=== PATIENT | male | born 1960 | race Caucasian/White ===

== ENCOUNTER → 2020-02-26 18:25 | Outpatient (CLI) | payer MEDICAID, SELFPAY ==
[2020-02-26 19:20] LABS: Basophils # 0.1 K/mm3 (0-0.2); Basophils % 0.7 % (0.1-2.0); Eosinophils # 0.2 K/mm3 (0.0-0.4); Eosinophils % 2.9 % (0.1-12.0); Hematocrit 42.3 % (42.0-52.0); Hemoglobin 13.7 g/dL (14.1-18.0); Lymphocytes # 1.3 K/mm3 (0.7-4.5); Lymphocytes % 17.8 % (10-50); Mean Corpuscular HGB Conc 32.5 g/dL (31.8-35.4); Mean Corpuscular Hemoglobin 30.4 pg (27.0-31.2); Mean Corpuscular Volume 93.7 fl (80-94); Mean Platelet Volume 9.9 fl (7.4-10.4); Monocytes # 0.5 K/mm3 (0.1-1.0); Monocytes % 6.7 % (1.7-9.3); Neutrophils # 5.2 K/mm3 (1.8-7.8); Platelet Count 236 K/mm3 (142-424); Red Blood Count 4.51 M/mm3 (4.60-6.20); Red Cell Distribution Width 13.8 % (11.5-17.5); White Blood Count 7.2 K/mm3 (4.8-10.8)
[2020-02-26 19:39] LABS: Alanine Aminotransferase 16 U/L (12-78); Albumin Level 4.3 g/dl (3.5-5.0); Albumin/Globulin Ratio 1.4 (1.1-1.8); Alkaline Phosphatase 66 U/L (38-126); Anion Gap 18.7 mEq/L (5-15); Aspartate Amino Transferase 22 U/L (17-59); Bilirubin,Total 0.5 mg/dl (0.2-1.3); Blood Urea Nitrogen 28 mg/dl (9-20); Carbon Dioxide 24 mmol/L (22.0-30.0); Chloride 99 mmol/L (98-107); Chol/HDL Ratio 5.3 (1-3.5); Cholesterol 164 mg/dl (140-200); Estimated Glomerular Filt Rate 48 ml/min (>60); GFR (African American) 58 ML/MIN (>60); Glucose 319 mg/dl (74-100); HDL Cholesterol 31 mg/dl (40-60); Potassium 5.7 mmoL/L (3.5-5.1); Sodium 136 mmol/L (136-145); Total Protein,Serum 7.3 g/dl (6.3-8.2); Triglycerides 182 mg/dl (30-150); VLDL Cholesterol 36 mg/dL (0-40)
[2020-02-26 19:50] LABS: Direct LDL Cholesterol 111.72 mg/dL (100-129)
[2020-02-26 19:56] LABS: T4 (Thyroxine) 7.1 ug/dl (5.53-11.0)
[2020-02-26 20:05] LABS: Creatinine,Urine Random 33 mg/dL (Not Estab.); Hemoglobin A1C 7.2 % (4.0-6.0); Microalbumin < 6.000 mg/L (0-16.7)
[2020-02-26 20:10] LABS: Prostate Specific Ag Screen 1.1 ng/ml (0.0-4.0); Thyroid Stimulating Hormone 1.83 uIU/mL (0.465-4.68)
[2020-03-01 18:55] LABS: Testosterone, Total, LC/MS 425.6 ng/dL (264.0-916.0); Testosterone,Free 6.1 pg/mL (6.6-18.1)
== END ==
PROVIDERS: Visit Provider Family Medicine
DX: E11.9 Type 2 diabetes mellitus without complications (principal); I10 Essential (primary) hypertension; E78.5 Hyperlipidemia, unspecified; Z79.84 Long term (current) use of oral hypoglycemic drugs; Z12.5 Encounter for screening for malignant neoplasm of prostate
CPT/HCPCS: 80053; 80061; 82043; 82570; 83036; 84402; 84403; 84436; 84443; 85025; G0103

== ENCOUNTER → 2020-11-01 14:12 | Outpatient (CLI) | payer MEDICAID, SELFPAY ==
[2020-11-01 14:24] LABS: Basophils # 0.1 K/mm3 (0-0.2); Basophils % 0.9 % (0.1-2.0); Eosinophils # 0.2 K/mm3 (0.0-0.4); Eosinophils % 2.3 % (0.1-12.0); Hematocrit 38.6 % (42.0-52.0); Hemoglobin 12.9 g/dL (14.1-18.0); Lymphocytes # 1.4 K/mm3 (0.7-4.5); Mean Corpuscular HGB Conc 33.3 g/dL (31.8-35.4); Mean Corpuscular Hemoglobin 29.5 pg (27.0-31.2); Mean Corpuscular Volume 88.5 fl (80-94); Mean Platelet Volume 9.5 fl (7.4-10.4); Monocytes # 0.5 K/mm3 (0.1-1.0); Monocytes % 4.9 % (1.7-9.3); Neutrophils # 7.1 K/mm3 (1.8-7.8); Neutrophils % 76.9 % (37.0-80.0); Platelet Count 225 K/mm3 (142-424); Red Blood Count 4.36 M/mm3 (4.60-6.20); Red Cell Distribution Width 13.7 % (11.5-17.5); White Blood Count 9.2 K/mm3 (4.8-10.8)
[2020-11-01 14:52] LABS: Chloride 104 mmol/L (98-107)
[2020-11-01 14:53] LABS: Potassium 5.2 mmoL/L (3.5-5.1); Sodium 138 mmol/L (136-145)
[2020-11-01 14:55] LABS: Alanine Aminotransferase 15 U/L (12-78); Albumin Level 4.7 g/dl (3.5-5.0); Albumin/Globulin Ratio 1.5 (1.1-1.8); Alkaline Phosphatase 69 U/L (38-126); Anion Gap 16.2 mEq/L (5-15); Aspartate Amino Transferase 22 U/L (17-59); Bilirubin,Total 0.5 mg/dl (0.2-1.3); Blood Urea Nitrogen 41 mg/dl (9-20); Carbon Dioxide 23 mmol/L (22.0-30.0); Estimated Glomerular Filt Rate 39 ml/min (>60); GFR (African American) 47 ML/MIN (>60); Globulin 3.1 g/dL (1.3-3.2); Total Protein,Serum 7.8 g/dl (6.3-8.2)
[2020-11-01 14:56] LABS: Calcium 9.9 mg/dl (8.4-10.2); Chol/HDL Ratio 4.1 (1-3.5); Cholesterol 174 mg/dl (140-200); Glucose 179 mg/dl (74-100); HDL Cholesterol 42 mg/dl (40-60); Triglycerides 174 mg/dl (30-150); VLDL Cholesterol 35 mg/dL (0-40)
[2020-11-01 15:07] LABS: Direct LDL Cholesterol 97.94 mg/dL (100-129)
[2020-11-01 15:10] LABS: Creatinine,Urine Random 91 mg/dL (Not Estab.)
[2020-11-01 15:14] LABS: Hemoglobin A1C 7.2 % (4.0-6.0); Microalbumin/Creatinine Ratio 15.4
[2020-11-01 15:27] LABS: Thyroid Stimulating Hormone 3.37 uIU/mL (0.465-4.68)
== END ==
PROVIDERS: Visit Provider Family Medicine
DX: E11.9 Type 2 diabetes mellitus without complications (principal); Z79.84 Long term (current) use of oral hypoglycemic drugs; Z79.899 Other long term (current) drug therapy
CPT/HCPCS: 80053; 80061; 82043; 82570; 83036; 84443; 85025

== ENCOUNTER → 2021-01-10 10:53 | Outpatient (CLI) | payer MEDICAID, SELFPAY | PROVIDERS: Visit Provider Internal Medicine Gastroenterology | DX: Z01.812 Encounter for preprocedural laboratory examination (principal); Z11.52 Encounter for screening for COVID-19; Z12.11 Encounter for screening for malignant neoplasm of colon | CPT/HCPCS: C9803; U0003; U0005 ==

== ENCOUNTER 2021-01-13 09:28 | Day surgery (SDC) | payer MEDICAID, SELFPAY ==
[2021-01-09 13:57] VITALS: BMI 28.6
[2021-01-13] VITALS (7 sets, daily range): BP systolic 111–125; BP diastolic 64–85; PULSE 56–75; RESP 16–18; TEMP 36.1–36.7; O2SAT 96–99
--- NOTE | 2021-01-13 10:24 | P.PCN_ITS ---
[facility] Procedure Note Procedure Note:: Colonoscopy Procedure Report: Colonoscopy with cold snare polypectomy Endoscopist: Sina Jackson II, MD Referring physician: Bharath Rivas MD Date of Procedure: 01/13/2021 Equipment: Olympus 190 variable stiffness pediatric colonoscope Sedation: MAC sedation Indication: Mr. Hickman is a 60-year-old gentleman who is here for follow-up screening/surveillance colonoscopy secondary to a personal history of colon polyps and a family history of colon cancer. His paternal grandfather and paternal aunt had colon cancer. The patient's last colonoscopy was 13 years ago at which time polyps were removed ([facility]). The patient reports no abdominal pain, weight loss, change in his bowel habits or rectal bleeding. Procedure: Prior to the procedure, a history and physical exam was performed, and patient's medications and allergies were reviewed. The risks, benefits and alternatives of the sedation and procedure were discussed with the patient. All questions were answered and informed consent was obtained. The patient was brought to the procedure room. Patient identification and proposed procedure were verified by the physician and the nurse. The patient was placed in a left lateral decubitus position and the scope was passed under direct vision. Throughout the procedure, the patient's blood pressure, pulse, and oxygen saturations were monitored continuously. The colonoscopy was accomplished without difficulty. The patient tolerated the procedure well. Findings: On digital rectal examination there was normal rectal tone. There were no external hemorrhoids. The prostate was 2+, mildly firm but symmetric without nodules. The colonoscope was introduced through the anal canal to the rectum and advanced to the cecum. The ileocecal valve and appendiceal orifice were identified. The scope was advanced a short distance into the ileum which appeared grossly normal. The scope was then withdrawn into the colon. T there were 6 colon polyps (ascending x2 (4 and 5 mm), descending x2 (3 and 5 mm) and sigmoid x2 (4 and 4 mm)) which were all removed via cold snare polypectomy. There were mildly scattered diverticuli throughout the descending and sigmoid colon (LEFT colon). The rectum itself was normal. Upon retroflexion within the rectum there were grade 1-2 internal hemorrhoids. The preparation was excellent throughout with Severn Preparation Score of 9. The cecal time was 12 minutes. Impression: 1. Diminutive colonic polyps x6 2. Mild left-sided diverticulosis 3. Grade 1-2 internal hemorrhoids Plan: I will follow up the polyp pathology and recommend repeat colonoscopy again in 3-5 years based upon the adenomatous polyp histology and family history. I would encourage bulk fiber supplementation on a long-term daily maintenance basis.
--- NOTE | 2021-01-13 10:25 | HMH.ANESCL ---
[facility] Anesthesia Checklist - Patient Identification Patient Identification: Arm Band - Structural Data Admitted From: Home Planned Operative Procedure/s: colonoscopy Consent for Planned Operative Procedure(s) Verified: Yes Verified Documents: Surgical Consent, History and Physical - NPO Status Verified Time NPO: 00:00 - Additional verifications Anesthesia Reactions: No - Airway Assessment C-Spine Mobility Assessed: Yes (mp2) TMJ Mobility Assessed: Yes Dentition: Good Dentition - Neurological Assessment Level of Consciousness: Awake, Alert - Anesthesia Plan Anesthesia Risk discussed: Yes Anesthesia Plan: Verified ASA Class: III Anesthesia Type: MAC [facility] History I have reviewed the patient's past medical history: Yes Medical History: Reports:: Coronary Artery Disease, Diabetes Mellitus Type 2, Hyperlipidemia, Hypertension, Renal Insufficiency Denies:: Cancer, Diabetes Mellitus Type 1, Internal Pacemaker, MRSA, Seizures *Have you ever received a pneumonia vaccine?: No *Have you received a flu vaccine this season?: No Anesthesia experience/problems:: nac Other Surgeries: Yes: Cardiac Surgery, Colonoscopy, Coronary Stent. No: Pacemaker Amputation: No - *Social History Last grade of school completed: High school graduate Smoking Status: Never smoker Alcohol Intake: current Alcohol Intake Frequency:: holidays/special occasions only Substance Use Type: denies use *Occupational Status:: unemployed *Travel in the last 8 weeks: None Family Hx:: No significant family history
[2021-01-13 11:08] LABS: POC Glucose,Bedside 179 (70-110)
== END 2021-01-13 12:00 | disposition home or self-care (01) ==
LOC: OUTP 09:31
PROVIDERS: PCP Family Medicine; Visit Provider Internal Medicine Gastroenterology
PROC: 0DJD8ZZ Inspection of Lower Intestinal Tract, Via Natural or Artificial Opening Endoscopic (ICD-10-PCS; CPT 45378; principal; 2021-01-13 10:30)
DX: Z12.11 Encounter for screening for malignant neoplasm of colon (principal); Z86.010 Personal history of colon polyps; Z80.0 Family history of malignant neoplasm of digestive organs; K63.5 Polyp of colon; K57.32 Diverticulitis of large intestine without perforation or abscess without bleeding; K64.0 First degree hemorrhoids; I25.10 Atherosclerotic heart disease of native coronary artery without angina pectoris; E11.9 Type 2 diabetes mellitus without complications; E78.5 Hyperlipidemia, unspecified; I10 Essential (primary) hypertension; F41.9 Anxiety disorder, unspecified; N28.9 Disorder of kidney and ureter, unspecified
CPT/HCPCS: 45385; 82962

== ENCOUNTER → 2021-03-24 14:45 | Outpatient (CLI) | payer MEDICAID, SELFPAY ==
[2021-03-24 16:55] LABS: Chloride 101 mmol/L (98-107); Potassium 5.5 mmoL/L (3.5-5.1); Sodium 135 mmol/L (136-145)
[2021-03-24 16:58] LABS: Anion Gap 15.5 mEq/L (5-15); Blood Urea Nitrogen 30 mg/dl (9-20); Calcium 10.5 mg/dl (8.4-10.2); Carbon Dioxide 24 mmol/L (22.0-30.0); Estimated Glomerular Filt Rate 44 ml/min (>60); GFR (African American) 53 ML/MIN (>60); Glucose 242 mg/dl (74-100)
[2021-03-24 18:02] LABS: Hemoglobin A1C 8.8 % (4.0-6.0)
== END ==
PROVIDERS: Visit Provider Family Medicine
DX: E11.9 Type 2 diabetes mellitus without complications (principal); Z79.84 Long term (current) use of oral hypoglycemic drugs
CPT/HCPCS: 80048; 83036

== ENCOUNTER 2021-04-14 13:15 | Inpatient (IN) | payer MEDICAID, SELFPAY ==
[2021-04-14] VITALS (11 sets, daily range): BP systolic 100–129; BP diastolic 55–73; PULSE 56–65; RESP 16–31; TEMP 36.7–36.9; O2SAT 95–99; BMI 28.8; BMI 29.6
--- NOTE | 2021-04-14 15:04 | HMH.EDUTC ---
[facility] Disposition Condition on Discharge: Good <Julio Xie - Last Filed: 04/14/21 17:14> Condition on Discharge: Good Time of Disposition: 15:23 <Paris Pearson - Last Filed: 04/14/21 22:37> Clinical Impression: JOAQUINA (acute kidney injury) Chest pain Qualifiers: Chest pain type: other chest pain Qualified Code(s): R07.89 - Other chest pain Disposition: Admitted as Observation Medical Decision Making - Romel Inquiry Pt receiving controlled substance: No - Lab Data Result diagrams: 04/14/21 15:34 04/14/21 15:34 - ECG Data Tracing #1 Normal Sinus Rhythm: Yes (sinus 57, irbbb, no st elev) <Julio Xie - Last Filed: 04/14/21 17:14> - Romel Inquiry Pt receiving controlled substance: No Romel was queried for this patient: No - Lab Data Result diagrams: 04/14/21 15:34 04/14/21 15:34 <Paris Pearson - Last Filed: 04/14/21 22:37> Vital Signs: 04/14/21 14:45 04/14/21 15:15 04/14/21 16:00 Temperature 98.4 F 98.3 F Temperature Source Oral Oral Pulse Rate 56 L Pulse Rate [Left Brachial] 64 60 Respiratory Rate 20 16 23 Blood Pressure 129/70 Blood Pressure [Left Arm] 100/55 L 112/60 Blood Pressure Mean [Left Arm] 70 77 Blood Pressure Source [Left Arm] Automatic Cuff Blood Pressure Position [Left Arm] Sitting 02 Sat by Pulse Oximetry 95 99 99 Oxygen Delivery Method Room Air Room Air 04/14/21 16:30 04/14/21 17:00 04/14/21 17:30 Temperature Temperature Source Pulse Rate 62 61 59 L Pulse Rate [Left Brachial] Respiratory Rate 28 H 31 H 23 Blood Pressure 115/66 113/65 116/69 Blood Pressure [Left Arm] Blood Pressure Mean [Left Arm] Blood Pressure Source [Left Arm] Blood Pressure Position [Left Arm] 02 Sat by Pulse Oximetry 98 96 98 Oxygen Delivery Method 04/14/21 17:45 04/14/21 18:15 04/14/21 18:49 Temperature 98.3 F Temperature Source Oral Pulse Rate 60 62 Pulse Rate [Left Brachial] 65 Respiratory Rate 23 27 H 18 Blood Pressure 126/73 110/61 Blood Pressure [Left Arm] 110/61 Blood Pressure Mean [Left Arm] 77 Blood Pressure Source [Left Arm] Automatic Cuff Blood Pressure Position [Left Arm] Supine 02 Sat by Pulse Oximetry 97 96 95 Oxygen Delivery Method Room Air 04/14/21 18:51 Temperature 98.1 F Temperature Source Oral Pulse Rate 62 Pulse Rate [Left Brachial] Respiratory Rate 20 Blood Pressure 110/61 Blood Pressure [Left Arm] Blood Pressure Mean [Left Arm] Blood Pressure Source [Left Arm] Blood Pressure Position [Left Arm] 02 Sat by Pulse Oximetry Oxygen Delivery Method Room Air - Lab Data Lab Results 04/14/21 15:34: WBC 3.2 L, RBC 4.02 L, Hgb 12.1 L, Hct 37.8 L, MCV 94.1 H, MCH 30.2, MCHC 32.1, RDW 13.7, Plt Count 211, MPV 10.2, Neut % (Auto) 77.8, Lymph % (Auto) 16.1, Harper % (Auto) 5.3, Eos % (Auto) 0.1, Baso % (Auto) 0.7, Neut # (Auto) 2.5, Lymph # (Auto) 0.5 L, Harper # (Auto) 0.2, Eos # (Auto) 0.0, Baso # (Auto) 0.0 04/14/21 15:34: Sodium 127 L, Potassium 4.6, Chloride 95 L, Carbon Dioxide 23, Anion Gap 13.6, BUN 39 H, Creatinine 2.10 H, Estimated Creat Clear 46, Estimated GFR 32 L, Est GFR ( Amer) 39 L, Glucose 178 H, Calcium 9.2, Total Bilirubin 0.7, AST 72 H, ALT 36, Alkaline Phosphatase 79, Troponin I 0.07 H, Total Protein 7.3, Albumin 3.9, Globulin 3.4 H, Albumin/Globulin Ratio 1.1 04/14/21 17:32: SARS-CoV-2 (PCR) Detected A, Influenza A Untype (PCR) Not detected, Influenza Type B (PCR) Not detected 04/14/21 18:34: Troponin I 0.06 H Orders (Tests/Meds): ED MEDICATIONS Generic Name Dose Route Start Last Admin Trade Name Freq PRN Reason Stop Dose Admin Sodium Chloride 500 mls @ 999 mls/hr 04/14/21 16:45 Sod Chlor 0.9% 1000ml Bag IV 04/14/21 17:15 .Q31M DACIA Sodium Chloride 1,000 mls @ 125 mls/hr 04/14/21 17:30 Sod Chlor 0.9% 1000ml Bag IV 05/14/21 17:29 .Q8H DACIA Ceftriaxone Sodium 2 gm/ 100 mls @ 200 mls/hr 04/14/21 17:30 Sodium Chloride IV 04/28
--- NOTE | 2021-04-14 15:09 | XR_ITS ---
PROCEDURE: XR CHEST PORTABLE CLINICAL HISTORY: cp COMPARISON: No exams were available for comparison FINDINGS: There has been a prior median sternotomy and CABG. There is cardiomegaly without failure. Patchy areas of infiltrate are present in the right upper and right lower lobe the the There is an old right clavicular fracture. Curvilinear calcific density left upper lobe laterally and right upper lobe centrally possibly due to costochondral calcifications. Old granulomatous disease. No acute bony abnormalities. IMPRESSION: Cardiomegaly with patchy infiltrate in the right upper and right lower lobe. Dictated by: Sean Queen MD 04/14/2021 15:40 Sean Queen MD in OV 04/14/2021 15:40
--- NOTE | 2021-04-14 15:09 | PC.NURSE ---
PATIENT SENT TO ER PER Camila FOREMAN APRN FOR FURTHER EVALUATION. REPORT GIVEN TO Abram AVALOS RN BY Camila FOREMAN APRN
--- NOTE | 2021-04-14 15:14 | ECG_ITS ---
APPROVED REPORT Exam: Resting ECG HR:57 bpm ECG Measurements Heart Rate [address] 164 P 4 QRSd 112 QRS 23 QT 460 T 141 QTc 447 Conclusion Sinus bradycardia Incomplete left bundle branch block Nonspecific ST and T wave abnormality Abnormal ECG Electronically signed by : Bharath Cardoza MD 04/16/2021 13:26:38
[2021-04-14 15:45] LABS: Basophils % 0.7 % (0.1-2.0); Eosinophils % 0.1 % (0.1-12.0); Hematocrit 37.8 % (42.0-52.0); Hemoglobin 12.1 g/dL (14.1-18.0); Lymphocytes # 0.5 K/mm3 (0.7-4.5); Lymphocytes % 16.1 % (10-50); Mean Corpuscular HGB Conc 32.1 g/dL (31.8-35.4); Mean Corpuscular Hemoglobin 30.2 pg (27.0-31.2); Mean Corpuscular Volume 94.1 fl (80-94); Mean Platelet Volume 10.2 fl (7.4-10.4); Monocytes # 0.2 K/mm3 (0.1-1.0); Monocytes % 5.3 % (1.7-9.3); Neutrophils # 2.5 K/mm3 (1.8-7.8); Neutrophils % 77.8 % (37.0-80.0); Platelet Count 211 K/mm3 (142-424); Red Blood Count 4.02 M/mm3 (4.60-6.20); Red Cell Distribution Width 13.7 % (11.5-17.5); White Blood Count 3.2 K/mm3 (4.8-10.8)
[2021-04-14 16:01] LABS: Alanine Aminotransferase 36 U/L (12-78); Albumin Level 3.9 g/dl (3.5-5.0); Albumin/Globulin Ratio 1.1 (1.1-1.8); Alkaline Phosphatase 79 U/L (38-126); Anion Gap 13.6 mEq/L (5-15); Aspartate Amino Transferase 72 U/L (17-59); Bilirubin,Total 0.7 mg/dl (0.2-1.3); Blood Urea Nitrogen 39 mg/dl (9-20); Calcium 9.2 mg/dl (8.4-10.2); Carbon Dioxide 23 mmol/L (22.0-30.0); Chloride 95 mmol/L (98-107); Creatinine Clearance Estimated 46 mL/min (50-200); Estimated Glomerular Filt Rate 32 ml/min (>60); GFR (African American) 39 ML/MIN (>60); Globulin 3.4 g/dL (1.3-3.2); Glucose 178 mg/dl (74-100); Potassium 4.6 mmoL/L (3.5-5.1); Sodium 127 mmol/L (136-145); Total Protein,Serum 7.3 g/dl (6.3-8.2)
[2021-04-14 16:14] LABS: Troponin I 0.07 ng/ml (0.00-0.034)
[2021-04-14 17:37] LABS: Influenza A, PCR Not Detected (NotDetected); Influenza B, PCR Not Detected (NotDetected)
[2021-04-14 18:14] LABS: Coronavirus 19, PCR Detected (NotDetected)
[2021-04-14 19:29] LABS: Troponin I 0.06 ng/ml (0.00-0.034)
[2021-04-14 20:22] LABS: Troponin I 0.07 ng/ml (0.00-0.034)
[2021-04-15] VITALS (9 sets, daily range): BP systolic 99–125; BP diastolic 43–70; PULSE 60–89; RESP 16–18; TEMP 36.4–38.1; O2SAT 90–91; BMI 28.1
--- NOTE | 2021-04-15 07:53 | HMH.PHAVTE ---
[facility] Pharmacy VTE Monitoring - Patient Demographics Admission date: 04/14/21 Report Date: 04/15/21 Time: 07:54 Allergies/Adverse Reactions: Patient Allergies codeine Allergy (Intermediate, Verified 03/24/21 11:27) Height: 1.75 m Weight: 86.183 kg Patient Problems: Current Active Problems Chest pain (Acute) JOAQUINA (acute kidney injury) (Acute) - VTE Risk Labs: VTE Related Lab Results Hgb 12.1 g/dL (14.1-18.0) L 04/14/21 15:34 Hct 37.8 % (42.0-52.0) L 04/14/21 15:34 Plt Count 211 K/mm3 (142-424) 04/14/21 15:34 BUN 39 mg/dl (9-20) H 04/14/21 15:34 Creatinine 2.10 mg/dl (0.66-1.25) H 04/14/21 15:34 Estimated Creat Clear 46 mL/min (50-200) 04/14/21 15:34 VTE Risk Level: Low Risk - Prophylaxis VTE Prophylaxis Ordered?: Yes Types of VTE Prophylaxis: TEDS Knee High Location of Applied Device: Bilateral Lower Extremeties
--- NOTE | 2021-04-15 09:41 | HMH.PHAINT ---
MEDICATION RECONCILIATION COMPLETED ON PATIENT USING EXTERNAL FILL HISTORY FROM PHARMACY AND LIST FROM PCP OFFICE. -ANAYA RICHTERD
--- NOTE | 2021-04-15 10:49 | HMH.HP ---
*Admission Date: 04/14/21 *Chief complaint: Shortness of breath *History of present illness: 60-year-old male patient presented to the [facility] for off-and-on chest pain for several days, shortness of breath, nausea, was diagnosed with COVID-19 on 04/08/21. He reports increasing shortness of breath and nausea with worsening cough, fatigue, and flulike symptoms. Was transferred to the main ED department after reports of off-and-on chest pain In the emergency department troponin was 0.7, 0.6, and 0.7 04/14/21 CXR: FINDINGS: There has been a prior median sternotomy and CABG. There is cardiomegaly without failure. Patchy areas of infiltrate are present in the right upper and right lower lobe the the There is an old right clavicular fracture. Curvilinear calcific density left upper lobe laterally and right upper lobe centrally possibly due to costochondral calcifications. Old granulomatous disease. No acute bony abnormalities. IMPRESSION: Cardiomegaly with patchy infiltrate in the right upper and right lower lobe. Dictated by: Sean Queen MD 60-year-old male patient lying in bed resting quietly denies any chest pain or shortness of breath during the night. Current oxygenation is 94% on room air. He denies any concerns/needs at moment pulmonary consulted [facility] History I have reviewed the patient's past medical history: Yes Medical History: Reports:: Coronary Artery Disease, Diabetes Mellitus Type 2, Hyperlipidemia, Hypertension, Renal Insufficiency Denies:: Cancer, Diabetes Mellitus Type 1, Internal Pacemaker, MRSA, Seizures *Have you ever received a pneumonia vaccine?: No *Have you received a flu vaccine this season?: No Other Surgeries: Yes: Cardiac Surgery, Colonoscopy, Coronary Stent. No: Pacemaker Amputation: No - *Social History Smoking Status: Never smoker Alcohol Intake: never Alcohol Intake Frequency:: holidays/special occasions only Substance Use Type: denies use *Occupational Status:: employed *Travel in the last 8 weeks: Inside the [place] Family Hx:: No significant family history Review of Systems - Review of Systems Review of systems:: pertinent systems reviewed and negative unless documented below - Constitutional Denies anorexia, Denies fever(s) - Eyes Denies blind spots, Denies change in vision - ENT Denies dizziness, Denies difficulty swallowing - *Cardiovascular Reports chest pain, Reports chest pain at rest, Reports chest pain with activity, Reports shortness of breath, Reports shortness of breath with activity, Denies leg pain with activity - *Respiratory Reports chest congestion, Reports cough, Reports shortness of breath - *Gastrointestinal Reports nausea, Denies abdominal pain, Denies constipation - *Musculoskeletal Denies abnormal walking, Denies back pain, Denies numbness - Integumentary/Breasts Reports hair loss, Denies change in skin color - *Neurologic Reports other (unable to sleep), Denies abnormal walking, Denies confusion - Psychiatric Reports abnormal sleep pattern, Denies anxiety - Endocrine Denies cold intolerance, Denies increased hunger - Hematologic/Lymphatic Denies easy bleeding, Denies enlarged lymph nodes - Allergic/Immunologic Denies seasonal runny nose, Denies wheezing Meds Home Medications Medication Instructions Recorded Confirmed Type aspirin 81 mg tablet,delayed 81 mg PO DAILY 02/26/20 04/14/21 History release Atorvastatin Calcium [Lipitor 10mg 10 mg PO DAILY 01/09/21 04/14/21 History Tab] Clopidogrel Bisulfate [Plavix] 75 mg PO DAILY 01/09/21 04/14/21 History Metoprolol Tartrate [Lopressor 25 mg PO DAILY 01/09/21 04/14/21 History 25mg tablet] Sitagliptin Phos/Metformin HCl 1 tab PO DAILY 01/09/21 04/14/21 History [Janumet XR] lisinopriL [Lisinopril 2.5mg Tab] 2.5 mg PO DAILY 01/09/21 04/14/21 History Furosemide [Furosemide 20mg Tab*] 20 mg PO DAILYP PRN 04/14/21 04/15/21 History glipiZIDE [Glipizide ER] 10 mg PO
[2021-04-15 11:53] LABS: POC Glucose,Bedside 231 (70-110)
--- NOTE | 2021-04-15 13:30 | PC.NURSE ---
0840- Report called of EF at 20%- reported to Dr. Rivas & Darrin Solo.
[2021-04-15 14:49] LABS: C-Reactive Protein 100.9 mg/L (0-4)
--- NOTE | 2021-04-15 15:23 | HMH.PULMCON ---
*Admission Date: 04/14/21 *Reason for consult:: COVID-19 pneumonia *History of present illness: Mr. Hickman is a 60-year-old male no significant smoking history, no prior respiratory complaints as per the patient was diagnosed with COVID-19 pneumonia on 08 April, symptoms gradually getting worse with worsening cough fatigue and flulike symptoms and was eventually presented to the hospital today with saturations at 90-91 on room air and was admitted to the hospital for further management. [facility] History Medical History: Reports:: Coronary Artery Disease, Diabetes Mellitus Type 2, Hyperlipidemia, Hypertension, Renal Insufficiency Denies:: Cancer, Diabetes Mellitus Type 1, Internal Pacemaker, MRSA, Seizures *Have you ever received a pneumonia vaccine?: No *Have you received a flu vaccine this season?: No Other Surgeries: Yes: Cardiac Surgery, Colonoscopy, Coronary Stent. No: Pacemaker Amputation: No - *Social History Smoking Status: Never smoker Alcohol Intake: never Alcohol Intake Frequency:: holidays/special occasions only Substance Use Type: denies use *Occupational Status:: employed *Travel in the last 8 weeks: [facility] Family Hx:: No significant family history ROS - Cons Reports anorexia, Reports body ache(s), Reports chills - Card Reports shortness of breath, Reports shortness of breath with activity - Resp Respiratory: Reports cough, Reports non-productive cough, Reports dyspnea, Reports dyspnea on exertion, Denies excessive phlegm production, Denies coughing up blood, Denies pain on inspiration, Denies pain with cough, Denies cough with sputum production - GI Gastrointestingal: Denies: abdominal pain - Psych Denies confusion, Denies thoughts of hurting/killing others, Denies thoughts of hurting/killing yourself Meds Home Medications Medication Instructions Recorded Confirmed Type aspirin 81 mg tablet,delayed 81 mg PO DAILY 02/26/20 04/14/21 History release Atorvastatin Calcium [Lipitor 10mg 10 mg PO DAILY 01/09/21 04/14/21 History Tab] Clopidogrel Bisulfate [Plavix] 75 mg PO DAILY 01/09/21 04/14/21 History Metoprolol Tartrate [Lopressor 25 mg PO DAILY 01/09/21 04/14/21 History 25mg tablet] Sitagliptin Phos/Metformin HCl 1 tab PO DAILY 01/09/21 04/14/21 History [Janumet XR] lisinopriL [Lisinopril 2.5mg Tab] 2.5 mg PO DAILY 01/09/21 04/14/21 History Furosemide [Furosemide 20mg Tab*] 20 mg PO DAILYP PRN 04/14/21 04/15/21 History glipiZIDE [Glipizide ER] 10 mg PO BID 04/14/21 04/15/21 History Empagliflozin [Jardiance] 25 mg PO DAILY 04/15/21 04/15/21 History Allergies Allergy/AdvReac Type Severity Reaction Status Date / Time codeine Allergy Intermediate Verified 03/24/21 11:27 Exam - Constitutional Constitutional:: Present: no acute distress, comfortable - HENMT Exam HENMT: Present: normocephalic, atraumatic - Eye Exam Eyes:: Present: normal appearance both eyes and related structures - Neck Exam Neck:: Present: normal visual inspection - Respiratory Exam Respiratory:: Present: able to speak in complete sentences, no respiratory distress. Absent: crackles, rhonchi, wheezing - Cardiovascular Exam Cardiac:: Present: S1, S2 - GI Exam GI:: Present: soft - Skin Exam Skin: Present: warm, no rash - Neurological Exam Neurological: Present: alert, awake, normal cognition - Extremities Exam Extremities: Present: no cyanosis, no clubbing, no edema Internal Medicine - CN: Reslt - Labs CBC & Chem 7: 04/14/21 15:34 04/14/21 15:34 Labs: Short CBC 04/14/21 Range/Units 15:34 WBC 3.2 L (4.8-10.8) K/mm3 Hgb 12.1 L (14.1-18.0) g/dL Hct 37.8 L (42.0-52.0) % Plt Count 211 (142-424) K/mm3 BMP 04/14/21 15:34 Sodium 127 L Potassium 4.6 Chloride 95 L Carbon Dioxide 23 BUN 39 H Creatinine 2.10 H Glucose 178 H Calcium 9.2 Cardiac Enzymes 04/14/21 04/14/21 04/14/21 Range/Units 15:34 18:34 19:52 Troponin
[2021-04-15 16:14] LABS: D-Dimer 2.45 ug/mL (0.0-0.5)
[2021-04-15 19:56] LABS: POC Glucose,Bedside 339 (70-110)
[2021-04-15 21:01] LABS: POC Glucose,Bedside 297 (70-110)
[2021-04-15 21:07] LABS: Ferritin 798 ng/ml (17.9-464)
[2021-04-16] VITALS (7 sets, daily range): BP systolic 103–110; BP diastolic 58–68; PULSE 50–82; RESP 16–18; TEMP 36.4–37.1; O2SAT 91–95; BMI 28.8
[2021-04-16 06:45] LABS: Chloride 106 mmol/L (98-107); Potassium 5.3 mmoL/L (3.5-5.1); Sodium 132 mmol/L (136-145)
[2021-04-16 06:48] LABS: Blood Urea Nitrogen 33 mg/dl (9-20); Creatinine Clearance Estimated 69 mL/min (50-200); Estimated Glomerular Filt Rate 52 ml/min (>60); GFR (African American) 62 ML/MIN (>60)
[2021-04-16 06:49] LABS: Anion Gap 13.3 mEq/L (5-15); Calcium 8.3 mg/dl (8.4-10.2); Carbon Dioxide 18 mmol/L (22.0-30.0); Glucose 283 mg/dl (74-100)
[2021-04-16 06:50] LABS: Basophils % 0.2 % (0.1-2.0); Hematocrit 34.1 % (42.0-52.0); Hemoglobin 10.8 g/dL (14.1-18.0); Lymphocytes # 0.3 K/mm3 (0.7-4.5); Lymphocytes % 8.6 % (10-50); Mean Corpuscular HGB Conc 31.6 g/dL (31.8-35.4); Mean Corpuscular Hemoglobin 29.9 pg (27.0-31.2); Mean Corpuscular Volume 94.6 fl (80-94); Mean Platelet Volume 9.9 fl (7.4-10.4); Monocytes # 0.2 K/mm3 (0.1-1.0); Monocytes % 4.4 % (1.7-9.3); Neutrophils # 3.3 K/mm3 (1.8-7.8); Neutrophils % 86.7 % (37.0-80.0); Platelet Count 249 K/mm3 (142-424); Red Blood Count 3.61 M/mm3 (4.60-6.20); Red Cell Distribution Width 13.6 % (11.5-17.5); White Blood Count 3.8 K/mm3 (4.8-10.8)
[2021-04-16 06:53] LABS: MANUAL DIFFERENTIAL MANUAL DIFFERENTIAL (MANUAL DIFF)
[2021-04-16 07:50] LABS: Lymphocytes % 9 % (10-50); Monocytes % 3 % (2-9); Neutrophils % 88 % (42-76); Platelet Estimate Normal; Total Cells Counted 100
[2021-04-16 07:52] LABS: Burr Cells 2+
[2021-04-16 07:54] LABS: Poikilocytosis 2+
--- NOTE | 2021-04-16 09:07 | HMH.PULMPN ---
Internal Medicine - PN: Subj *Date: 04/16/21 *Time: 12:13 Interval history: No acute respiratory vents overnight. Patient continued to remain on room air. Exam - Constitutional Constitutional:: Present: no acute distress, comfortable - HENMT Exam HENMT: Present: normocephalic, atraumatic - Eye Exam Eyes:: Present: normal appearance both eyes and related structures - Neck Exam Neck:: Present: normal visual inspection - Respiratory Exam Respiratory:: Present: able to speak in complete sentences, crackles Comments: Prominent left lower lobe crackles. - Cardiovascular Exam Cardiac:: Present: S1, S2 - GI Exam GI:: Present: soft, no hepatosplenomegaly - Skin Exam Skin: Present: warm, no rash - Neurological Exam Neurological: Present: alert, awake, normal cognition - Extremities Exam Extremities: Present: no cyanosis, no clubbing Assessment and Plan (1) Pneumonia due to COVID-19 virus Status: Acute Category: Medical Code(s): U07.1 - COVID-19; J12.82 - Pneumonia due to coronavirus disease 2019 (2) Anxiety Status: Acute Category: Medical Code(s): F41.9 - Anxiety disorder, unspecified (3) CAD (coronary artery disease) Status: Acute Qualifiers: Coronary Disease-Associated Artery/Lesion type: [place] artery [place] vs. transplanted heart: [place] heart Associated angina: with other forms of angina Qualified Code(s): I25.118 - Atherosclerotic heart disease of [place] coronary artery with other forms of angina pectoris Category: Medical Code(s): I25.10 - Atherosclerotic heart disease of [place] coronary artery without angina pectoris (4) Hx of CABG Status: Acute Category: Surgical Code(s): Z95.1 - Presence of aortocoronary bypass graft (5) JOAQUINA (acute kidney injury) Status: Acute Category: Medical Code(s): N17.9 - Acute kidney failure, unspecified - Assessment and plan all Dx Assessment and Plan for all problems:: #COVID-19 pneumonia: 60-year-old male, never smoker, no significant prior respiratory complaints. As per the patient was diagnosed with COVID-19 pneumonia on April 07 with progressively worsening symptoms presented to hospital saturating 90 to 91% on room air. Initiated on remdesivir dexamethasone along with levofloxacin. CRP significantly elevated 100. Follow with D-dimer and ferritin. Leukopenia with lymphopenia noted. Chest x-ray showed bilateral patchy airspace disease Rt > Lt and cardiomegaly. Interval update: Patient continued remained in room air, saturations improved from yesterday. D-dimer significant elevated at 2.45, no evidence of tachycardia. Renal function improving. Reduced ejection fraction. Cardiology following. Continue to receive remdesivir, dexamethasone along with ceftriaxone and azithromycin. Plan: -Continue remdesivir x 3 days and dexamethasone x 10 days -Continue ceftriaxone and azithromycin, can be weaned to levofloxacin to complete a total of 5-day course upon discharge -Continue Combivent every 6 hours as needed. -LE venous doppler -Follow with cardiology recommendations #Thank you for involving pulmonary in this patient care. We will continue to follow.
--- NOTE | 2021-04-16 10:35 | HMH.ACPN2 ---
Internal Medicine - PN: Subj *Date: 04/16/21 *Time: 09:30 Interval history: pt states doing well Exam Vital signs and Labs for Last 24 Hours: Temp Pulse Resp BP Pulse Ox 98.4 F 68 16 107/64 L 93 L 04/16/21 08:00 04/16/21 08:00 04/16/21 08:00 04/16/21 08:00 04/16/21 08:00 Laboratory Results - last 24 hr 04/15/21 11:29: POC Glucose 231 H 04/15/21 14:20: D-Dimer 2.45 H 04/15/21 14:20: Ferritin 798 H 04/15/21 14:20: C-Reactive Protein 100.9 H 04/15/21 16:13: POC Glucose 339 H* 04/15/21 20:47: POC Glucose 297 H 04/16/21 06:25: WBC 3.8 L, RBC 3.61 L, Hgb 10.8 L, Hct 34.1 L, MCV 94.6 H, MCH 29.9, MCHC 31.6 L, RDW 13.6, Plt Count 249, MPV 9.9, Neut % (Auto) 86.7 H, Lymph % (Auto) 8.6 L, [place] % (Auto) 4.4, Eos % (Auto) 0.0 L, Baso % (Auto) 0.2, Neut # (Auto) 3.3, Lymph # (Auto) 0.3 L, [place] # (Auto) 0.2, Eos # (Auto) 0.0, Baso # (Auto) 0.0, Total Counted 100, Neutrophils % (Manual) 88 H, Lymphocytes % (Manual) 9 L, Monocytes % (Manual) 3, Platelet Estimate Normal, Poikilocytosis 2+, Karri Cells 2+ 04/16/21 06:25: Sodium 132 L, Potassium 5.3 H, Chloride 106, Carbon Dioxide 18 L, Anion Gap 13.3, BUN 33 H, Creatinine 1.40 H D, Estimated Creat Clear 69, Estimated GFR 52 L, Est GFR ( Amer) 62 D, Glucose 283 H, Calcium 8.3 L I & O for Last 24 hours: Intake & Output 12/26/21 12/27/21 12/28/21 12/29/21 11:59 11:59 11:59 11:59 Intake Total 240 / 240 480 / 480 Balance 240 / 240 480 / 480 Weight 190 lb 195 lb Microbiology Reports for the Last 24 Hours: Microbiology 04/15/21 14:03 Sputum - Expectorated Sputum Gram Stain - Final - Constitutional no acute distress - *Routine HEENT Exam Head: Present: normocephalic Eye: Present: PERRL ENT: Present: mucous membranes moist - *Routine Neck Exam Present: supple. Absent: lymphadenopathy - *Routine Respiratory Exam Present: CTA bilaterally - *Routine Cardiovascular Exam Present: RRR - *Routine Abdominal Exam Present: soft, normoactive bowel sounds. Absent: tenderness - *Routine Extremities Exam Absent: cyanosis, clubbing, edema - *Routine Skin Exam Present: warm. Absent: rash - *Routine Neurological Exam Present: alert, oriented X3 Assessment and Plan (1) Pneumonia due to COVID-19 virus Status: Acute Category: Medical Code(s): U07.1 - COVID-19; J12.82 - Pneumonia due to coronavirus disease 2019 (2) Anxiety Status: Acute Category: Medical Code(s): F41.9 - Anxiety disorder, unspecified (3) CAD (coronary artery disease) Status: Acute Qualifiers: Coronary Disease-Associated Artery/Lesion type: [place] artery [place] vs. transplanted heart: [place] heart Associated angina: without angina Qualified Code(s): I25.10 - Atherosclerotic heart disease of [place] coronary artery without angina pectoris Category: Medical Code(s): I25.10 - Atherosclerotic heart disease of [place] coronary artery without angina pectoris (4) Hx of CABG Status: Acute Category: Surgical Code(s): Z95.1 - Presence of aortocoronary bypass graft (5) JOAQUINA (acute kidney injury) Status: Acute Category: Medical Code(s): N17.9 - Acute kidney failure, unspecified - Assessment and plan all Dx Assessment and Plan for all problems:: rounded with dr lopez all orders per dr lopez heart cath today
--- NOTE | 2021-04-16 11:10 | HMH.CNCARD ---
History of Present Illness Consult date: 04/16/21 Requesting physician: Medhat Rivas Consult reason: chest pain, congestive heart failure Chief complaint: chest pain History of present illness: This is a 60-year-old white gentleman who presented to the [facility] for off-and-on chest pain for several days as well as shortness of breath and nausea. The patient states that he was having left-sided chest pain that he describes as a dull aching sensation. He states that it did not radiate. It was associated with shortness of breath, nausea, cough and fatigue. He was found to have COVID-19 on 04/08/2021. After presenting to the [facility] with his symptoms he was then referred to the emergency department where he was found to have an elevated troponin and was admitted to the hospital. The patient is also being treated for COVID-19 pneumonia. He states that the chest pain has been occurring intermittently. He states that his shortness of breath is better and his flulike symptoms are now better as well. He denies any fever, chills, nausea, vomiting, diarrhea, PND or orthopnea. The patient had an echocardiogram which shows systolic congestive heart failure with an ejection fraction of 30 to 35%. He does report having history of coronary artery bypass grafting in 1984 and he had 1 drug-eluting stent placed to his coronary arteries approximately 3 years ago. He denies ever having a pacemaker or defibrillator. [facility] History I have reviewed the patient's past medical history: Yes Medical History: Reports:: Atherosclerotic Heart Disease, Coronary Artery Disease, Diabetes Mellitus Type 2, Hyperlipidemia, Hypertension, Renal Insufficiency Denies:: Cancer, Diabetes Mellitus Type 1, Internal Pacemaker, MRSA, Seizures *Have you ever received a pneumonia vaccine?: No *Have you received a flu vaccine this season?: No Other Surgeries: Yes: CABG, Cardiac Surgery, Colonoscopy, Coronary Stent. No: Pacemaker Amputation: No - *Social History Smoking Status: Never smoker Alcohol Intake: never Alcohol Intake Frequency:: holidays/special occasions only Substance Use Type: denies use *Occupational Status:: employed *Travel in the last 8 weeks: Inside the [facility] Family Hx:: No significant family history Meds Home Medications Medication Instructions Recorded Confirmed Type aspirin 81 mg tablet,delayed 81 mg PO DAILY 02/26/20 04/14/21 History release Atorvastatin Calcium [Lipitor 10mg 10 mg PO DAILY 01/09/21 04/14/21 History Tab] Clopidogrel Bisulfate [Plavix] 75 mg PO DAILY 01/09/21 04/14/21 History Metoprolol Tartrate [Lopressor 25 mg PO DAILY 01/09/21 04/14/21 History 25mg tablet] Sitagliptin Phos/Metformin HCl 1 tab PO DAILY 01/09/21 04/14/21 History [Janumet XR] lisinopriL [Lisinopril 2.5mg Tab] 2.5 mg PO DAILY 01/09/21 04/14/21 History Furosemide [Furosemide 20mg Tab*] 20 mg PO DAILYP PRN 04/14/21 04/15/21 History glipiZIDE [Glipizide ER] 10 mg PO BID 04/14/21 04/15/21 History Empagliflozin [Jardiance] 25 mg PO DAILY 04/15/21 04/15/21 History Allergies Allergy/AdvReac Type Severity Reaction Status Date / Time codeine Allergy Intermediate Verified 03/24/21 11:27 Exam Vital signs and Labs for Last 24 Hours: Temp Pulse Resp BP Pulse Ox 98.4 F 68 16 107/64 L 93 L 04/16/21 08:00 04/16/21 08:00 04/16/21 08:00 04/16/21 08:00 04/16/21 08:00 Laboratory Results - last 24 hr 04/15/21 11:29: POC Glucose 231 H 04/15/21 14:20: D-Dimer 2.45 H 04/15/21 14:20: Ferritin 798 H 04/15/21 14:20: C-Reactive Protein 100.9 H 04/15/21 16:13: POC Glucose 339 H* 04/15/21 20:47: POC Glucose 297 H 04/16/21 06:25: WBC 3.8 L, RBC 3.61 L, Hgb 10.8 L, Hct 34.1 L, MCV 94.6 H, MCH 29.9, MCHC 31.6 L, RDW 13.6, Plt Count 249, MPV 9.9, Neut % (Auto) 86.7 H, Lymph % (Auto) 8.6 L, [place] % (Auto) 4.4, Eos % (Auto) 0.0 L, Baso % (Auto) 0.2, Neut # (Auto) 3.3, Lymph # (Auto) 0.3 L, [place] # (Auto) 0.2, Eos # (Auto) 0.0, Baso # (Auto) 0.0, Total Counted 100, Ne
--- NOTE | 2021-04-16 12:15 | CA_ITS ---
APPROVED REPORT Bilateral Lower Extremity Venous Study for DVT. 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: CT Indications Hypoxia, elevbated D-Dimer, Covid + Vein Imaging CFV (R): compressive, spontaneous, phasic, augmentation SFJ (R): compressive, spontaneous, phasic, augmentation FEM (R): compressive, spontaneous, phasic, augmentation POP (R): compressive, spontaneous, phasic, augmentation DFV (R): compressive, spontaneous, phasic, augmentation PTV (R): compressive, spontaneous, phasic, augmentation GSV (R): Not Visualized Peroneals (R):compressive, spontaneous, phasic, augmentation GAS (R): compressive, spontaneous, phasic, augmentation CFV (L): compressive, spontaneous, phasic, augmentation SFJ (L): compressive, spontaneous, phasic, augmentation FEM (L): compressive, spontaneous, phasic, augmentation POP (L): compressive, spontaneous, phasic, augmentation DFV (L): compressive, spontaneous, phasic, augmentation PTV (L): compressive, spontaneous, phasic, augmentation GSV (L): compressive, spontaneous, phasic, augmentation Peroneals (L):compressive, spontaneous, phasic, augmentation GAS (L): compressive, spontaneous, phasic, augmentation Findings Bilateral venous negative for DVT/SVT Vessels compressible. Conclusion Bilateral venous negative for DVT/SVT Vessels compressible. Electronically signed by : Sean Queen MD 04/17/2021 14:57:29
--- NOTE | 2021-04-16 16:56 | PC.NURSE ---
no complaints this shift. rings out as needed. ambulates independently. remains on room air. vitals stable. will have heart cath tomorrow. need to hold lovenox if ordred in morning
[2021-04-16 17:23] LABS: POC Glucose,Bedside 340 (70-110)
[2021-04-16 20:10] LABS: POC Glucose,Bedside 366 (70-110)
[2021-04-16 20:10] LABS: POC Glucose,Bedside 298 (70-110)
[2021-04-17] VITALS (13 sets, daily range): BP systolic 90–153; BP diastolic 52–86; PULSE 50–91; RESP 14–21; TEMP 36.4–36.7; O2SAT 91–95; BMI 28.8
--- NOTE | 2021-04-17 | IR_ITS ---
APPROVED REPORT Patient Location: Inpatient Social Work Assistant: RUBY Hernandez RT (R) PROCEDURES Left heart catheterization Left ventriculogram Selective coronary angiogram Selective gauge left internal mammary artery with angiography Selective engagement of saphenous vein graft to the circumflex artery with venography Selective engagement saphenous vein graft to the right coronary artery with venography Bilateral selective renal angiogram INDICATION History of coronary disease, History of coronary bypass surgery, Systolic congestive heart failure ejection fraction 30%, Elevated troponin, Multivessel coronary artery disease with chronic renal insufficiency creatinine 1.4 suspect renal artery stenosis Informed consent was obtained prior to the procedure. COMPLICATIONS NONE Estimated Blood Loss: LESS THAN 10 ML TECHNIQUE One percent lidocaine used to anesthetize the right groin. The right femoral artery was accessed via the Seldinger technique and a 5 Polish sheath was placed in the right femoral artery. A JL 4, JR4 catheter were used to perform left heart catheterization, left ventriculogram selective coronary angiography as well as selective engagement of the 2 vein grafts and the left internal mammary artery. The JR4 catheter was used to selectively intubate each renal artery at the end of the procedure the patient was transferred to the postop holding area in stable condition for sheath removal. ANGIOGRAPHIC RESULTS The left main artery Distally occluded The right coronary artery Proximally occluded. The distal right coronary artery fills via collaterals from the LANE graft supplying the LAD and a [id number] manner The [place] ventriculogram reveals Dilated ventricle with severe left ventricular dysfunction ejection fraction 25 to 30% The left ventricular end-diastolic pressure 10 to 15 mmHg Left internal mammary artery is widely patent to the LAD. The LAD is small caliber vessel with 80% distal stenoses. The entire LAD is a small caliber diffusely diseased vasculopathic vessel Saphenous vein graft to the circumflex artery is widely patent. The circumflex artery itself is a small caliber diffusely diseased vessel Saphenous vein graft to the right coronary is ostially occluded Right renal artery is singular and then bifurcates into 2 large vessels. The superior branch supplying 50% of the right renal parenchyma has a proximal eccentric 40% stenosis while the inferior branch is normal Left renal artery singular normal IMPRESSION Severe ischemic heart disease as described above with patent LANE graft supplying a severely diffusely diseased LAD which then collateralizes a chronically occluded right coronary artery Severe left ventricular dysfunction with normal left ventricular end-diastolic pressure PLAN 1. Aggressive therapy for systolic heart failure which should include Entresto and carvedilol 2. Patient is already on a beta-tian and FÉLIX inhibitor and has severe left ventricular dysfunction. Patient is a candidate for an AICD. Upon discharge she should have either a LifeVest or possibly have an AICD placed prior to discharge home 3. LDL less than 55 4. Standard therapy for systolic heart failure and standard therapy for ischemic heart disease 5. Avoidance of tobacco products Electronically signed by : Dami Abraham MD 04/17/2021 13:25:39
[2021-04-17 03:23] LABS: POC Glucose,Bedside 377 (70-110)
--- NOTE | 2021-04-17 05:09 | PC.NURSE ---
pt has rested well this shift, has showered and shaved in preparation for cath today, ambulating in room independently, remains on room air with O2 sats 92-94%, no complaints of pain or SOA, telemetry shows sinus sarabjit, systolic BP 90-107, HR 54-61
[2021-04-17 06:01] LABS: POC Glucose,Bedside 322 (70-110)
[2021-04-17 06:48] LABS: Basophils % 0.2 % (0.1-2.0); Hematocrit 33.9 % (42.0-52.0); Hemoglobin 10.8 g/dL (14.1-18.0); Lymphocytes # 0.4 K/mm3 (0.7-4.5); Mean Corpuscular HGB Conc 31.8 g/dL (31.8-35.4); Mean Corpuscular Hemoglobin 29.8 pg (27.0-31.2); Mean Corpuscular Volume 93.8 fl (80-94); Mean Platelet Volume 9.5 fl (7.4-10.4); Monocytes # 0.3 K/mm3 (0.1-1.0); Monocytes % 2.5 % (1.7-9.3); Neutrophils # 9.3 K/mm3 (1.8-7.8); Neutrophils % 93.3 % (37.0-80.0); Platelet Count 315 K/mm3 (142-424); Red Blood Count 3.62 M/mm3 (4.60-6.20); Red Cell Distribution Width 13.8 % (11.5-17.5); White Blood Count 9.9 K/mm3 (4.8-10.8)
[2021-04-17 06:56] LABS: Chloride 107 mmol/L (98-107); Potassium 4.7 mmoL/L (3.5-5.1); Sodium 133 mmol/L (136-145)
[2021-04-17 06:58] LABS: Blood Urea Nitrogen 35 mg/dl (9-20); Creatinine Clearance Estimated 75 mL/min (50-200); Estimated Glomerular Filt Rate 56 ml/min (>60); GFR (African American) 68 ML/MIN (>60)
[2021-04-17 06:59] LABS: Alanine Aminotransferase 27 U/L (12-78); Albumin Level 2.9 g/dl (3.5-5.0); Alkaline Phosphatase 71 U/L (38-126); Anion Gap 13.7 mEq/L (5-15); Aspartate Amino Transferase 45 U/L (17-59); Bilirubin,Direct 0.2 mg/dl (0.0-0.4); Bilirubin,Total 0.2 mg/dl (0.2-1.3); Bilirubin,Unconjugated 0.1 mg/dL (0.0-1.1); Calcium 8.7 mg/dl (8.4-10.2); Carbon Dioxide 17 mmol/L (22.0-30.0); Chol/HDL Ratio 7.4 (1-3.5); Cholesterol 119 mg/dl (140-200); Glucose 313 mg/dl (74-100); HDL Cholesterol 16 mg/dl (40-60); Triglycerides 136 mg/dl (30-150); VLDL Cholesterol 27 mg/dL (0-40)
[2021-04-17 07:10] LABS: Direct LDL Cholesterol 71.88 mg/dL (100-129)
[2021-04-17 07:22] LABS: MANUAL DIFFERENTIAL MANUAL DIFFERENTIAL (MANUAL DIFF)
--- NOTE | 2021-04-17 08:48 | HMH.PULMPN ---
Internal Medicine - PN: Subj *Date: 04/17/21 *Time: 11:52 Interval history: No acute respite events overnight. Patient continued to remain on room air. Exam - Constitutional Constitutional:: Present: no acute distress, comfortable - HENMT Exam HENMT: Present: normocephalic, atraumatic - Eye Exam Eyes:: Present: normal appearance both eyes and related structures - Neck Exam Neck:: Present: normal visual inspection - Respiratory Exam Respiratory:: Present: able to speak in complete sentences, no respiratory distress, rales - Cardiovascular Exam Cardiac:: Present: S1, S2 - GI Exam GI:: Present: soft, no hepatosplenomegaly - Skin Exam Skin: Present: warm, no rash, dry - Neurological Exam Neurological: Present: alert, awake, normal cognition - Extremities Exam Extremities: Present: no cyanosis, no clubbing, no edema Assessment and Plan (1) Pneumonia due to COVID-19 virus Status: Acute Category: Medical Code(s): U07.1 - COVID-19; J12.82 - Pneumonia due to coronavirus disease 2019 (2) Anxiety Status: Acute Category: Medical Code(s): F41.9 - Anxiety disorder, unspecified (3) CAD (coronary artery disease) Status: Acute Qualifiers: Coronary Disease-Associated Artery/Lesion type: [place] artery [place] vs. transplanted heart: [place] heart Associated angina: with other forms of angina Qualified Code(s): I25.118 - Atherosclerotic heart disease of [place] coronary artery with other forms of angina pectoris Category: Medical Code(s): I25.10 - Atherosclerotic heart disease of [place] coronary artery without angina pectoris (4) Hx of CABG Status: Acute Category: Surgical Code(s): Z95.1 - Presence of aortocoronary bypass graft (5) JOAQUINA (acute kidney injury) Status: Acute Category: Medical Code(s): N17.9 - Acute kidney failure, unspecified - Assessment and plan all Dx Assessment and Plan for all problems:: #COVID-19 pneumonia: 60-year-old male, never smoker, no significant prior respiratory complaints. As per the patient was diagnosed with COVID-19 pneumonia on April 07 with progressively worsening symptoms presented to hospital saturating 90 to 91% on room air. Initiated on remdesivir dexamethasone along with levofloxacin. CRP significantly elevated 100. Follow with D-dimer and ferritin. Leukopenia with lymphopenia noted. Chest x-ray showed bilateral patchy airspace disease Rt > Lt and cardiomegaly. D-dimer significant elevated at 2.45, no evidence of tachycardia. Renal function improving. Reduced ejection fraction. Cardiology following. Continue to receive remdesivir, dexamethasone along with ceftriaxone and azithromycin. Patient respiratory status continued to improve, he is saturating 94 to 95% on room air. Cardiology following, scheduled for left heart cath. Plan: -F/U Venous doppler results -Continue remdesivir x 5 days or untill discharge and dexamethasone x 10 days -Continue ceftriaxone and azithromycin, can be weaned to levofloxacin to complete a total of 5-day course upon discharge -Continue Combivent every 6 hours as needed. -Follow with cardiology recommendations #Thank you for involving pulmonary in this patient care. We will continue to follow.
[2021-04-17 08:52] LABS: Lymphocytes % 3 % (10-50); Monocytes % 4 % (2-9); Neutrophils % 91 % (42-76); Total Cells Counted 100
[2021-04-17 08:53] LABS: Platelet Estimate Normal; RBC Morphology Normal
--- NOTE | 2021-04-17 09:30 | P.PN_ITS ---
Internal Medicine - PN: Subj *Date: 04/17/21 *Time: 09:30 Exam Vital signs and Labs for Last 24 Hours: Temp Pulse Resp BP Pulse Ox 97.5 F L 91 H 21 97/55 L 95 04/17/21 08:00 04/17/21 08:00 04/17/21 08:00 04/17/21 08:00 04/17/21 08:00 Laboratory Results - last 24 hr 04/16/21 05:11: POC Glucose 298 H 04/16/21 11:37: POC Glucose 366 H* 04/16/21 16:51: POC Glucose 340 H* 04/16/21 20:40: POC Glucose 377 H* 04/17/21 05:33: POC Glucose 322 H* 04/17/21 06:14: WBC 9.9 D, RBC 3.62 L, Hgb 10.8 L, Hct 33.9 L, MCV 93.8, MCH 29.8, MCHC 31.8, RDW 13.8, Plt Count 315 D, MPV 9.5, Neut % (Auto) 93.3 H, Lymph % (Auto) 4.0 L, [place] % (Auto) 2.5, Eos % (Auto) 0.0 L, Baso % (Auto) 0.2, Neut # (Auto) 9.3 H, Lymph # (Auto) 0.4 L, [place] # (Auto) 0.3, Eos # (Auto) 0.0, Baso # (Auto) 0.0, Total Counted 100, Neutrophils % (Manual) 91 H, Band Neutrophils % 2.0, Lymphocytes % (Manual) 3 L, Monocytes % (Manual) 4, Platelet Estimate Normal, RBC Morphology Normal 04/17/21 06:14: Sodium 133 L, Potassium 4.7, Chloride 107, Carbon Dioxide 17 L, Anion Gap 13.7, BUN 35 H, Creatinine 1.30 H, Estimated Creat Clear 75, Estimated GFR 56 L, Est GFR ( Amer) 68, Glucose 313 H, Calcium 8.7, Total Bilirubin 0.2, Direct Bilirubin 0.2, Conjugated Bilirubin 0.0, Indirect Bilirubin 0.0, Unconjugated Bilirubin 0.1, AST 45 D, ALT 27, Alkaline Phosphatase 71, Total Protein 6.0 L, Albumin 2.9 L, Triglycerides 136, Cholesterol 119 L, LDL Cholesterol Direct 71.88 L, VLDL Cholesterol 27, HDL Cholesterol 16 L, Cholesterol/HDL Ratio 7.4 H I & O for Last 24 hours: Intake & Output 04/14/21 04/15/21 04/16/21 04/17/21 23:59 23:59 23:59 23:59 Intake Total 360 / 360 600 / 660 160 / 160 Balance 360 / 360 600 / 660 160 / 160 Weight 200 lb 8 oz 190 lb 0.016 oz 195 lb 195 lb Microbiology Reports for the Last 24 Hours: Microbiology 04/15/21 14:03 Sputum - Expectorated Sputum Gram Stain - Final 04/15/21 14:03 Sputum - Expectorated Sputum Sputum Culture - Preliminary 04/14/21 18:34 Blood Blood Culture - Preliminary NO GROWTH AFTER 48 HOURS 04/14/21 18:34 Blood Blood Culture - Preliminary NO GROWTH AFTER 48 HOURS Assessment and Plan (1) Pneumonia due to COVID-19 virus Status: Acute Category: Medical Code(s): U07.1 - COVID-19; J12.82 - Pneumonia due to coronavirus disease 2019 (2) Anxiety Status: Acute Category: Medical Code(s): F41.9 - Anxiety disorder, unspecified (3) CAD (coronary artery disease) Status: Acute Qualifiers: Coronary Disease-Associated Artery/Lesion type: [place] artery [place] vs. transplanted heart: [place] heart Associated angina: with other forms of angina Qualified Code(s): I25.118 - Atherosclerotic heart disease of [place] coronary artery with other forms of angina pectoris Category: Medical Code(s): I25.10 - Atherosclerotic heart disease of [place] coronary artery without angina pectoris (4) Hx of CABG Status: Acute Category: Surgical Code(s): Z95.1 - Presence of aortocoronary bypass graft (5) JOAQUINA (acute kidney injury) Status: Acute Category: Medical Code(s): N17.9 - Acute kidney failure, unspecified
--- NOTE | 2021-04-17 09:34 | HMH.PNCARD ---
Subjective Date: 04/17/21 Time: 09:30 Principal diagnosis: cardiomyopathy, angina Interval history: This is a 60-year-old white gentleman who has been admitted to the hospital for Covid pneumonia. He was found to have an elevated troponin and cardiomyopathy with an ejection fraction of 30 to 35% by echocardiogram. On admission the patient had been having some chest pain that was occurring intermittently. He described this as a dull aching pain in the left side of his chest. It did not radiate. It was associated with shortness of breath, nausea, fatigue and cough. The patient has been set up for left cardiac catheterization today for a non-STEMI, angina and cardiomyopathy. He does have a known history of coronary artery disease with coronary artery bypass grafting in 1984 and a drug-eluting stent placed approximately 3 years ago. This morning he is chest pain-free. He denies any shortness of breath or edema. He denies any fever, chills, nausea, vomiting, diarrhea, PND or orthopnea. Exam Vital signs and Labs for Last 24 Hours: Temp Pulse Resp BP Pulse Ox 97.5 F L 91 H 21 97/55 L 95 04/17/21 08:00 04/17/21 08:00 04/17/21 08:00 04/17/21 08:00 04/17/21 08:00 Laboratory Results - last 24 hr 04/16/21 05:11: POC Glucose 298 H 04/16/21 11:37: POC Glucose 366 H* 04/16/21 16:51: POC Glucose 340 H* 04/16/21 20:40: POC Glucose 377 H* 04/17/21 05:33: POC Glucose 322 H* 04/17/21 06:14: WBC 9.9 D, RBC 3.62 L, Hgb 10.8 L, Hct 33.9 L, MCV 93.8, MCH 29.8, MCHC 31.8, RDW 13.8, Plt Count 315 D, MPV 9.5, Neut % (Auto) 93.3 H, Lymph % (Auto) 4.0 L, [place] % (Auto) 2.5, Eos % (Auto) 0.0 L, Baso % (Auto) 0.2, Neut # (Auto) 9.3 H, Lymph # (Auto) 0.4 L, [place] # (Auto) 0.3, Eos # (Auto) 0.0, Baso # (Auto) 0.0, Total Counted 100, Neutrophils % (Manual) 91 H, Band Neutrophils % 2.0, Lymphocytes % (Manual) 3 L, Monocytes % (Manual) 4, Platelet Estimate Normal, RBC Morphology Normal 04/17/21 06:14: Sodium 133 L, Potassium 4.7, Chloride 107, Carbon Dioxide 17 L, Anion Gap 13.7, BUN 35 H, Creatinine 1.30 H, Estimated Creat Clear 75, Estimated GFR 56 L, Est GFR ( Amer) 68, Glucose 313 H, Calcium 8.7, Total Bilirubin 0.2, Direct Bilirubin 0.2, Conjugated Bilirubin 0.0, Indirect Bilirubin 0.0, Unconjugated Bilirubin 0.1, AST 45 D, ALT 27, Alkaline Phosphatase 71, Total Protein 6.0 L, Albumin 2.9 L, Triglycerides 136, Cholesterol 119 L, LDL Cholesterol Direct 71.88 L, VLDL Cholesterol 27, HDL Cholesterol 16 L, Cholesterol/HDL Ratio 7.4 H I & O for Last 24 hours: Intake & Output 04/14/21 04/15/21 04/16/21 04/17/21 23:59 23:59 23:59 23:59 Intake Total 360 / 360 600 / 660 160 / 160 Balance 360 / 360 600 / 660 160 / 160 Weight 200 lb 8 oz 190 lb 0.016 oz 195 lb 195 lb Microbiology Reports for the Last 24 Hours: Microbiology 04/15/21 14:03 Sputum - Expectorated Sputum Gram Stain - Final 04/15/21 14:03 Sputum - Expectorated Sputum Sputum Culture - Preliminary 04/14/21 18:34 Blood Blood Culture - Preliminary NO GROWTH AFTER 48 HOURS 04/14/21 18:34 Blood Blood Culture - Preliminary NO GROWTH AFTER 48 HOURS - Constitutional no acute distress, average body habitus - *Routine HEENT Exam Head: Present: normocephalic, atraumatic Eye: Present: EOMI, PERRL ENT: Present: mucous membranes moist - *Routine Neck Exam Present: supple, full ROM, normal carotid upstroke. Absent: JVD, carotid bruit, lymphadenopathy - *Routine Respiratory Exam Present: CTA bilaterally - *Routine Cardiovascular Exam Present: RRR, Normal S1, Normal S2. Absent: murmur - *Routine Abdominal Exam Present: soft, normoactive bowel sounds. Absent: tenderness - *Routine Extremities Exam Present: full ROM, pulses intact, normal capillary refill. Absent: cyanosis, clubbing, edema - *Routine Skin Exam Present: intact, warm. Absent: erythema, rash - *Routine Neurological Exam Present: alert,
[2021-04-17 10:45] LABS: Chloride 107 mmol/L (98-107); Potassium 4.7 mmoL/L (3.5-5.1); Sodium 132 mmol/L (136-145)
[2021-04-17 10:47] LABS: Blood Urea Nitrogen 34 mg/dl (9-20); Creatinine Clearance Estimated 69 mL/min (50-200); Estimated Glomerular Filt Rate 52 ml/min (>60); GFR (African American) 62 ML/MIN (>60)
[2021-04-17 10:48] LABS: Alanine Aminotransferase 27 U/L (12-78); Albumin Level 2.9 g/dl (3.5-5.0); Albumin/Globulin Ratio 0.9 (1.1-1.8); Alkaline Phosphatase 69 U/L (38-126); Anion Gap 13.7 mEq/L (5-15); Aspartate Amino Transferase 58 U/L (17-59); Bilirubin,Total 0.3 mg/dl (0.2-1.3); Calcium 8.7 mg/dl (8.4-10.2); Carbon Dioxide 16 mmol/L (22.0-30.0); Globulin 3.1 g/dL (1.3-3.2); Glucose 310 mg/dl (74-100)
--- NOTE | 2021-04-17 10:58 | HMH.ACPN ---
Internal Medicine - PN: Subj *Date: 04/17/21 *Time: 10:58 Exam Vital signs and Labs for Last 24 Hours: Temp Pulse Resp BP Pulse Ox 97.5 F L 91 H 21 97/55 L 95 04/17/21 08:00 04/17/21 08:00 04/17/21 08:00 04/17/21 08:00 04/17/21 08:00 Laboratory Results - last 24 hr 04/16/21 05:11: POC Glucose 298 H 04/16/21 11:37: POC Glucose 366 H* 04/16/21 16:51: POC Glucose 340 H* 04/16/21 20:40: POC Glucose 377 H* 04/17/21 05:33: POC Glucose 322 H* 04/17/21 06:14: WBC 9.9 D, RBC 3.62 L, Hgb 10.8 L, Hct 33.9 L, MCV 93.8, MCH 29.8, MCHC 31.8, RDW 13.8, Plt Count 315 D, MPV 9.5, Neut % (Auto) 93.3 H, Lymph % (Auto) 4.0 L, Cherry % (Auto) 2.5, Eos % (Auto) 0.0 L, Baso % (Auto) 0.2, Neut # (Auto) 9.3 H, Lymph # (Auto) 0.4 L, Cherry # (Auto) 0.3, Eos # (Auto) 0.0, Baso # (Auto) 0.0, Total Counted 100, Neutrophils % (Manual) 91 H, Band Neutrophils % 2.0, Lymphocytes % (Manual) 3 L, Monocytes % (Manual) 4, Platelet Estimate Normal, RBC Morphology Normal 04/17/21 06:14: Sodium 133 L, Potassium 4.7, Chloride 107, Carbon Dioxide 17 L, Anion Gap 13.7, BUN 35 H, Creatinine 1.30 H, Estimated Creat Clear 75, Estimated GFR 56 L, Est GFR ( Amer) 68, Glucose 313 H, Calcium 8.7, Total Bilirubin 0.2, Direct Bilirubin 0.2, Conjugated Bilirubin 0.0, Indirect Bilirubin 0.0, Unconjugated Bilirubin 0.1, AST 45 D, ALT 27, Alkaline Phosphatase 71, Total Protein 6.0 L, Albumin 2.9 L, Triglycerides 136, Cholesterol 119 L, LDL Cholesterol Direct 71.88 L, VLDL Cholesterol 27, HDL Cholesterol 16 L, Cholesterol/HDL Ratio 7.4 H 04/17/21 06:14: Sodium 132 L, Potassium 4.7, Chloride 107, Carbon Dioxide 16 L, Anion Gap 13.7, BUN 34 H, Creatinine 1.40 H, Estimated Creat Clear 69, Estimated GFR 52 L, Est GFR ( Amer) 62, Glucose 310 H, Calcium 8.7, Total Bilirubin 0.3, AST 58 D, ALT 27, Alkaline Phosphatase 69, Total Protein 6.0 L, Albumin 2.9 L, Globulin 3.1, Albumin/Globulin Ratio 0.9 L I & O for Last 24 hours: Intake & Output 04/14/21 04/15/21 04/16/21 04/17/21 23:59 23:59 23:59 23:59 Intake Total 360 / 360 600 / 660 160 / 160 Balance 360 / 360 600 / 660 160 / 160 Weight 90.945 kg 86.183 kg 88.451 kg 88.451 kg Microbiology Reports for the Last 24 Hours: Microbiology 04/15/21 14:03 Sputum - Expectorated Sputum Gram Stain - Final 04/15/21 14:03 Sputum - Expectorated Sputum Sputum Culture - Preliminary 04/14/21 18:34 Blood Blood Culture - Preliminary NO GROWTH AFTER 48 HOURS 04/14/21 18:34 Blood Blood Culture - Preliminary NO GROWTH AFTER 48 HOURS Assessment and Plan (1) Non-STEMI (non-ST elevated myocardial infarction) Status: Acute Category: Medical Code(s): I21.4 - Non-ST elevation (NSTEMI) myocardial infarction (2) Angina pectoris Status: Acute Category: Medical Code(s): I20.9 - Angina pectoris, unspecified (3) LV dysfunction Status: Acute Category: Medical Code(s): I51.9 - Heart disease, unspecified (4) Systolic CHF Status: Acute Qualifiers: Heart failure chronicity: acute Qualified Code(s): I50.21 - Acute systolic (congestive) heart failure Category: Medical Code(s): I50.20 - Unspecified systolic (congestive) heart failure (5) Pneumonia due to COVID-19 virus Status: Acute Category: Medical Code(s): U07.1 - COVID-19; J12.82 - Pneumonia due to coronavirus disease 2019 (6) Anxiety Status: Acute Category: Medical Code(s): F41.9 - Anxiety disorder, unspecified (7) CAD (coronary artery disease) Status: Acute Qualifiers: Coronary Disease-Associated Artery/Lesion type: [place] artery [place] vs. transplanted heart: [place] heart Associated angina: with other forms of angina Qualified Code(s): I25.118 - Atherosclerotic heart disease of [place] coronary artery with other forms of angina pectoris Category: Medical Code(s): I25.10 - Atherosclerotic heart disease of [place] coronary artery without angina p
--- NOTE | 2021-04-17 15:34 | HMH.DCSUM ---
General - General Admission date:: 04/14/21 Discharge date: 04/17/21 HPI HPI: 60-year-old male patient presented to the [facility] for off-and-on chest pain for several days, shortness of breath, nausea, was diagnosed with COVID-19 on 04/08/21. He reports increasing shortness of breath and nausea with worsening cough, fatigue, and flulike symptoms. Was transferred to the main ED department after reports of off-and-on chest pain In the emergency department troponin was 0.7, 0.6, and 0.7 04/14/21 CXR: FINDINGS: There has been a prior median sternotomy and CABG. There is cardiomegaly without failure. Patchy areas of infiltrate are present in the right upper and right lower lobe the the There is an old right clavicular fracture. Curvilinear calcific density left upper lobe laterally and right upper lobe centrally possibly due to costochondral calcifications. Old granulomatous disease. No acute bony abnormalities. IMPRESSION: Cardiomegaly with patchy infiltrate in the right upper and right lower lobe. Dictated by: Sean Queen MD 60-year-old male patient lying in bed resting quietly denies any chest pain or shortness of breath during the night. Current oxygenation is 94% on room air. He denies any concerns/needs at moment pulmonary consulted Hospital Course Hospital Course: 04/14/21 CXR: IMPRESSION: Cardiomegaly with patchy infiltrate in the right upper and right lower lobe. Dictated by: Sean Queen MD 04/16/21 Bilat Venous Doppler: Conclusion Bilateral venous negative for DVT/SVT Vessels compressible. Electronically signed by : Sean Queen MD 04/17/21 [facility] shows: The left main artery Distally occluded The right coronary artery Proximally occluded. The distal right coronary artery fills via collaterals from the LANE graft supplying the LAD and a [id number] manner The PATTEN ventriculogram reveals Dilated ventricle with severe left ventricular dysfunction ejection fraction 25 to 30% The left ventricular end-diastolic pressure 10 to 15 mmHg Left internal mammary artery is widely patent to the LAD. The LAD is small caliber vessel with 80% distal stenoses. The entire LAD is a small caliber diffusely diseased vasculopathic vessel Saphenous vein graft to the circumflex artery is widely patent. The circumflex artery itself is a small caliber diffusely diseased vessel Saphenous vein graft to the right coronary is ostially occluded Right renal artery is singular and then bifurcates into 2 large vessels. The superior branch supplying 50% of the right renal parenchyma has a proximal eccentric 40% stenosis while the inferior branch is normal Left renal artery singular normal IMPRESSION Severe ischemic heart disease as described above with patent LANE graft supplying a severely diffusely diseased LAD which then collateralizes a chronically occluded right coronary artery Severe left ventricular dysfunction with normal left ventricular end-diastolic pressure PLAN 1. Aggressive therapy for systolic heart failure which should include Entresto and carvedilol 2. Patient is already on a beta-tian and FÉLIX inhibitor and has severe left ventricular dysfunction. Patient is a candidate for an AICD. Upon discharge she should have either a LifeVest or possibly have an AICD placed prior to discharge home 3. LDL less than 55 4. Standard therapy for systolic heart failure and standard therapy for ischemic heart disease 5. Avoidance of tobacco products Plan: 1. Patient has ischemic cardiomyopathy despite being on standard heart failure medications with a beta-tian and FÉLIX inhibitor. His FÉLIX inhibitor has been switched over to Entresto. He is a candidate for AICD placement at this time. 2. will get life vest in place prior to discharge home. 3. Pt can follow up in cardiology clinic in 1 week on an outpatient basis. 4. Patient will be set up for an outpatient AICD placement at his 1 week foll
[2021-04-17 17:53] LABS: POC Glucose,Bedside 267 (70-110)
[2021-04-17 17:53] LABS: POC Glucose,Bedside 285 (70-110)
== END 2021-04-17 18:20 | disposition home or self-care (01) | DRG 177 ==
LOC: UTC 13:18 → ER 15:06 → 2ND 18:32
PROVIDERS: Internal Medicine; Internal Medicine Pulmonary Disease; Nurse Practitioner Family; Admitting Provider Family Medicine; Emergency Provider Emergency Medicine; PCP Family Medicine; Visit Provider Family Medicine
PROC: 4A023N7 Measurement of Cardiac Sampling and Pressure, Left Heart, Percutaneous Approach (ICD-10-PCS; principal; 2021-04-17 08:00)
DX: U07.1 COVID-19 (principal); J12.82 Pneumonia due to coronavirus disease 2019; I50.21 Acute systolic (congestive) heart failure; I21.4 Non-ST elevation (NSTEMI) myocardial infarction; N17.9 Acute kidney failure, unspecified; E87.1 Hypo-osmolality and hyponatremia; E11.9 Type 2 diabetes mellitus without complications; Z79.01 Long term (current) use of anticoagulants; I25.5 Ischemic cardiomyopathy; I11.0 Hypertensive heart disease with heart failure; Z79.899 Other long term (current) drug therapy; I25.10 Atherosclerotic heart disease of native coronary artery without angina pectoris; E78.5 Hyperlipidemia, unspecified; Z95.5 Presence of coronary angioplasty implant and graft; Z79.84 Long term (current) use of oral hypoglycemic drugs; Z95.1 Presence of aortocoronary bypass graft
CPT/HCPCS: 36252; 36415; 71045; 80048; 80053; 80061; 80076; 82728; 82962; 84484; 85007; 85025; 85378; 86140; 87040; 87070; 87205; 93005; 93306; 93459; 93970; 99152; 99285; C1725; C1769; C1894; C9803; J0456; J1644; U0003; U0005

== ENCOUNTER → 2021-04-24 15:14 | Outpatient (CLI) | payer MEDICAID, SELFPAY | PROVIDERS: Visit Provider Nurse Practitioner Family | DX: Z01.812 Encounter for preprocedural laboratory examination (principal); U07.1 COVID-19 | CPT/HCPCS: C9803; U0003; U0005 ==

== ENCOUNTER 2021-04-25 10:56 | Day surgery (SDC) | payer MEDICAID, SELFPAY ==
[2021-04-25] VITALS (7 sets, daily range): BP systolic 104–121; BP diastolic 60–72; PULSE 76–98; RESP 16–19; O2SAT 95–99; BMI 27.8
--- NOTE | 2021-04-25 07:14 | IR_ITS ---
APPROVED REPORT Patient Location: Outpatient Closet Builder: RUBY Hernandez RT (R) PROCEDURES 1. Pocket formation for AICD. 2. Placement of atrial sensing and pacing coil into the right atrial appendage. 3. Placement of a ventricular sensing, pacing and shocking coil in the right ventricular apex. 4. Permanent AICD placement. Informed consent was obtained prior to the procedure. COMPLICATIONS None Estimated Blood Loss: Less than 10 ML TECHNIQUE 1% Lidocaine with epinephrine used to anesthetized the left anterior aspect of the chest. Scalpel was used to make the initial cutaneous incision while electrocautery was used to dissect down tinto the fascia. The fascia was lifted off the pectoralis muscle and digitally manipulated creating a pocket for the defibrillator. The patient was then placed in Trendelenburg position and the subclavian vein was accessed 2 times via the Selinger technique. A 8 [place] sheath was placed under fluoroscopic guidance into the subclavian vein. The dilator was removed from the sheath. Using fluoroscopic guidance, the ventricular lead was placed into the right ventricular apex, screwed and secured into place. Electronic interrogation proved acceptable thresholds and voltage within the lead. Using 3-0 silk, the ventricular lead was then secured into place and sheath peeled away. A 6 [place] fresh sheath and dilator was placed over the existing wire. Using fluoroscopic guidance, the atrial lead was then placed into the right atrial appendage and screwed and secured in place. Electrical interrogation demonstrated acceptable thresholds and voltage number. The atrial lead was then secured into place using 3-0 silk and sheath peeled away. 1 gram of Ancef was used to flush the pocket. All 3 leads were connected to generator and tested via computer. The defibrillator then secured to the fascia. Monocryl was used to close the subcutaneous layers while mey were used to close the cutaneous layer. A pressure dressing was placed and the patient was transferred to the postop holding area in stable condition for postoperative care. INTERROGATION Generator Model number: Teresant EL ICD DF1-DR D233 Generator Serial number: [id number] Atrial lead model number: Ingevity +IS-1 Bi Positive Fix RA/RV 52 cm 7841 Atrial lead serial number: [id number] P-wave: 2.5 mV Impedence: 610 Ohms Threshold: 1.0V@0.4ms Current: 1.7 mA Right Ventricular lead model number: [place] 4-FRONT Active Fix Dual Coil 59 cm 0675 Right Ventricular lead serial number: [id number] R-wave: 25.0 mV Impedence: 472 Ohms Threshold: 0.2V@0.4ms Current: 0.5 mV Pacing Parameters: Mode: DDD Base/Max Track: 60 ppm/130 ppm ICD Rate Cutoffs: VT-1: 150 bpm VT-2: 180 bpm VF: 210 bpm Quick Convert, 41JX8 ATP, 41JX6 No diaphragmatic stimulation at 10 volts. IMPRESSION 1. Successful Pocket formation for AICD. 2. Successful Placement of atrial sensing and pacing coil into the right atrial appendage. 3. Successful Placement of a ventricular sensing, pacing and shocking coil in the right ventricular apex. 4. Successful Permanent AICD placement. PLAN 1. Post Op Wound Care. Electronically signed by : Dami Abraham MD 04/25/2021 16:59:39
[2021-04-25 11:36] LABS: Basophils # 0.1 K/mm3 (0-0.2); Basophils % 1.1 % (0.1-2.0); Eosinophils # 0.1 K/mm3 (0.0-0.4); Eosinophils % 1.1 % (0.1-12.0); Hematocrit 41.2 % (42.0-52.0); Hemoglobin 12.9 g/dL (14.1-18.0); Lymphocytes # 1.2 K/mm3 (0.7-4.5); Lymphocytes % 15.2 % (10-50); Mean Corpuscular HGB Conc 31.3 g/dL (31.8-35.4); Mean Corpuscular Hemoglobin 29.9 pg (27.0-31.2); Mean Corpuscular Volume 95.4 fl (80-94); Mean Platelet Volume 8.4 fl (7.4-10.4); Monocytes # 0.3 K/mm3 (0.1-1.0); Monocytes % 4.3 % (1.7-9.3); Neutrophils # 6.1 K/mm3 (1.8-7.8); Neutrophils % 78.3 % (37.0-80.0); Platelet Count 511 K/mm3 (142-424); Red Blood Count 4.32 M/mm3 (4.60-6.20); White Blood Count 7.8 K/mm3 (4.8-10.8)
[2021-04-25 11:40] LABS: Chloride 100 mmol/L (98-107); Sodium 134 mmol/L (136-145)
[2021-04-25 11:41] LABS: Potassium 4.3 mmoL/L (3.5-5.1)
[2021-04-25 11:44] LABS: Anion Gap 14.3 mEq/L (5-15); Blood Urea Nitrogen 26 mg/dl (9-20); Calcium 10.2 mg/dl (8.4-10.2); Carbon Dioxide 24 mmol/L (22.0-30.0); Creatinine Clearance Estimated 55 mL/min (50-200); Estimated Glomerular Filt Rate 41 ml/min (>60); GFR (African American) 50 ML/MIN (>60); Glucose 223 mg/dl (74-100)
--- NOTE | 2021-04-25 12:59 | SUR.PREOP ---
Patient updated on delay of procedure d/t emergency heart cath
--- NOTE | 2021-04-25 16:44 | XR_ITS ---
PROCEDURE INFORMATION: Exam: XR Chest Exam date and time: 04/25/2021 4:44 PM Age: 60 years old Clinical indication: Device placement; Cardiac pacemaker placement or adjustment; Prior surgery; Surgery date: Post-operative (0-2 days); Additional info: Post pacemaker TECHNIQUE: Imaging protocol: XR of the chest. Views: 1 view. COMPARISON: CR XR CHEST PORTABLE 04/14/2021 3:24 PM FINDINGS: Tubes, catheters and devices: AICD. Large heart. Lungs: Unchanged coarse interstitial markings throughout the lungs without lobar consolidation, effusion or pulmonary edema. Pleural spaces: No pneumothorax. Heart/Mediastinum: See Tubes, catheters and devices finding. Bones/joints: Median sternotomy. IMPRESSION: 1. No pneumothorax. 2. Unchanged coarse interstitial markings throughout the lungs without lobar consolidation, effusion or pulmonary edema.
--- NOTE | 2021-04-25 16:51 | HMH.ANESCL ---
[facility] Anesthesia Checklist - Patient Identification Patient Identification: Arm Band, Verbal (Name & ) - Structural Data Admitted From: Home Planned Operative Procedure/s: AICD Placement Consent for Planned Operative Procedure(s) Verified: Yes Verified Documents: Surgical Consent - Additional verifications Anesthesia Reactions: No Hx Blood Transfusions: No Blood Transfusion Reaction: No - Airway Assessment Dentition: Good Dentition - Neurological Assessment Level of Consciousness: Awake, Alert, Appropriate - Anesthesia Plan Anesthesia Risk discussed: Yes ASA Class: III Anesthesia Type: MAC [facility] History I have reviewed the patient's past medical history: Yes Medical History: Reports:: Atherosclerotic Heart Disease, Coronary Artery Disease, Diabetes Mellitus Type 2, Hyperlipidemia, Hypertension, Renal Insufficiency Denies:: Cancer, Diabetes Mellitus Type 1, Internal Pacemaker, MRSA, Seizures *Have you ever received a pneumonia vaccine?: No *Have you received a flu vaccine this season?: No Other Medical History: Denies: Blood Transfusion Reaction Anesthesia experience/problems:: none Other Surgeries: Yes: CABG, Cardiac Surgery, Colonoscopy, Coronary Stent. No: Pacemaker Amputation: No - *Social History Last grade of school completed: 7th or 8th Smoking Status: Never smoker Alcohol Intake: current Alcohol Intake Frequency:: a few times a month Substance Use Type: denies use *Occupational Status:: disabled *Travel in the last 8 weeks: None Family Hx:: No significant family history
== END 2021-04-25 18:04 | disposition home or self-care (01) ==
PROVIDERS: PCP Internal Medicine; Visit Provider Internal Medicine
PROC: 0JH608Z Insertion of Defibrillator Generator into Chest Subcutaneous Tissue and Fascia, Open Approach (ICD-10-PCS; CPT 33249; principal; 2021-04-25 11:15)
DX: I25.5 Ischemic cardiomyopathy (principal); I11.0 Hypertensive heart disease with heart failure; I50.21 Acute systolic (congestive) heart failure; I25.118 Atherosclerotic heart disease of native coronary artery with other forms of angina pectoris; E11.59 Type 2 diabetes mellitus with other circulatory complications; I27.20 Pulmonary hypertension, unspecified; Z79.02 Long term (current) use of antithrombotics/antiplatelets; Z79.899 Other long term (current) drug therapy; Z79.84 Long term (current) use of oral hypoglycemic drugs
CPT/HCPCS: 33249; 71045; 80048; 85025; C1721; C1895; C1898

== ENCOUNTER → 2021-10-10 10:28 | Outpatient (CLI) | payer MEDICAID, SELFPAY ==
[2021-10-10 11:03] LABS: Basophils # 0.1 K/mm3 (0-0.2); Basophils % 1.6 % (0.1-2.0); Eosinophils # 0.1 K/mm3 (0.0-0.4); Eosinophils % 2.4 % (0.1-12.0); Hematocrit 39.8 % (42.0-52.0); Hemoglobin 12.6 g/dL (14.1-18.0); Lymphocytes # 1.4 K/mm3 (0.7-4.5); Lymphocytes % 25.7 % (10-50); Mean Corpuscular HGB Conc 31.7 g/dL (31.8-35.4); Mean Corpuscular Volume 94.7 fl (80-94); Mean Platelet Volume 9.6 fl (7.4-10.4); Monocytes # 0.4 K/mm3 (0.1-1.0); Monocytes % 6.3 % (1.7-9.3); Neutrophils # 3.6 K/mm3 (1.8-7.8); Neutrophils % 63.9 % (37.0-80.0); Platelet Count 245 K/mm3 (142-424); Red Blood Count 4.21 M/mm3 (4.60-6.20); Red Cell Distribution Width 13.7 % (11.5-17.5); White Blood Count 5.6 K/mm3 (4.8-10.8)
[2021-10-10 11:35] LABS: Alanine Aminotransferase 21 U/L (12-78); Albumin Level 4.1 g/dl (3.5-5.0); Albumin/Globulin Ratio 1.5 (1.1-1.8); Alkaline Phosphatase 63 U/L (38-126); Anion Gap 13.2 mEq/L (5-15); Aspartate Amino Transferase 22 U/L (17-59); Bilirubin,Total 0.4 mg/dl (0.2-1.3); Blood Urea Nitrogen 30 mg/dl (9-20); Calcium 9.6 mg/dl (8.4-10.2); Carbon Dioxide 25 mmol/L (22.0-30.0); Chloride 105 mmol/L (98-107); Estimated Glomerular Filt Rate 47 ml/min (>60); GFR (African American) 57 ML/MIN (>60); Globulin 2.8 g/dL (1.3-3.2); Glucose 288 mg/dl (74-100); Potassium 5.2 mmoL/L (3.5-5.1); Sodium 138 mmol/L (136-145); Total Protein,Serum 6.9 g/dl (6.3-8.2)
== END ==
PROVIDERS: Visit Provider Surgery
DX: R10.9 Unspecified abdominal pain (principal)
CPT/HCPCS: 36415; 80053; 85025

== ENCOUNTER → 2021-10-14 09:09 | Outpatient (CLI) | payer MEDICAID, SELFPAY ==
--- NOTE | 2021-10-14 09:09 | US_ITS ---
FINAL REPORT CLINICAL HISTORY: Right upper quad pain FINDINGS: ULTRASOUND GALLBLADDER Sonographic images of the right upper quadrant were obtained. The pancreas is partially obscured. The liver has increased echogenicity consistent with fatty infiltration. There is an echogenic focus in the gallbladder without definite shadowing, favor polyp over stone. There is no evidence of biliary ductal dilatation.The common duct measures 3 mm. The right kidney measures 9.5 cm in length. There is a small amount of right perirenal fluid of uncertain etiology but may be reactive. IMPRESSION: Fatty liver. Polyp or stone in the gallbladder. Small amount right perirenal fluid, uncertain etiology but may be reactive. Reviewed, Interpreted and Dictated by Elton Rocha III, MD Transcribed by Esther Savage Authenticated and [facility]
== END ==
PROVIDERS: PCP Family Medicine; Visit Provider Surgery
DX: R10.9 Unspecified abdominal pain (principal)
CPT/HCPCS: 76705

== ENCOUNTER → 2021-11-11 13:45 | Outpatient (CLI) | payer MEDICAID, SELFPAY | PROVIDERS: Visit Provider Surgery | DX: Z01.812 Encounter for preprocedural laboratory examination (principal); Z20.822 Contact with and (suspected) exposure to COVID-19; R11.0 Nausea; R10.13 Epigastric pain; K82.4 Cholesterolosis of gallbladder | CPT/HCPCS: C9803; U0003; U0005 ==

== ENCOUNTER 2021-11-13 06:11 | Day surgery (SDC) | payer MEDICAID, SELFPAY ==
[2021-11-12 13:10] VITALS: BMI 30.2
[2021-11-13] VITALS (20 sets, daily range): BP systolic 100–137; BP diastolic 41–81; PULSE 61–71; RESP 12–18; TEMP 36.1–43; O2SAT 94–100
[2021-11-13 06:46] LABS: Microscopic, Urine URINE MICROSCOPIC (MICROSCOPIC)
[2021-11-13 06:48] LABS: Appearance,Urine CLEAR (Clear); Bilirubin,Urine Negative (Negative); Blood, Urine Negative (Negative); Color,Urine YELLOW (Yellow); Glucose,Urine (UA) Negative (Negative); Ketones,Urine Negative (Negative); Leukocyte Esterase,Urine Negative (Negative); Nitrate,Urine Negative (Negative); PH,Urine 5.5 (5.0-8.5); Protein,Urine 1+ (Negative); Specific Gravity, Urine >= 1.030 (1.005-1.030); Urobilinogen,Urine 0.2 EU/dl (0.2)
--- NOTE | 2021-11-13 06:54 | HMH.ANESCL ---
[facility] Anesthesia Checklist - Patient Identification Patient Identification: Arm Band - Structural Data Admitted From: Home Planned Operative Procedure/s: CarolineStephan nava Consent for Planned Operative Procedure(s) Verified: Yes - NPO Status Verified Time NPO: 00:00 - Additional verifications Anesthesia Reactions: No Hx Blood Transfusions: No Blood Transfusion Reaction: No - Airway Assessment C-Spine Mobility Assessed: Yes TMJ Mobility Assessed: Yes Dentition: Good Dentition - Neurological Assessment Level of Consciousness: Awake Hx Seizures: No Numbness or tingling in extremities: No - Anesthesia Plan Anesthesia Risk discussed: Yes Anesthesia Plan: Verified ASA Class: III Anesthesia Type: General [facility] History I have reviewed the patient's past medical history: Yes Medical History: Reports:: Atherosclerotic Heart Disease, Coronary Artery Disease, Diabetes Mellitus Type 2, Hyperlipidemia, Hypertension, Internal Pacemaker, MRSA (chest), Myocardial Infarction, Renal Insufficiency Denies:: Cancer, Diabetes Mellitus Type 1, Seizures *Have you ever received a pneumonia vaccine?: No *Have you received a flu vaccine this season?: No Other Medical History: Denies: Blood Transfusion Reaction Anesthesia experience/problems:: None Other Surgeries: Yes: CABG, Cardiac Surgery, Colonoscopy, Coronary Stent, Pacemaker Amputation: No - *Social History Last grade of school completed: 7th or 8th Smoking Status: Never smoker Alcohol Intake: never Alcohol Intake Frequency:: a few times a month Substance Use Type: denies use *Occupational Status:: unemployed Housing: house *Travel in the last 8 weeks: Inside the [facility] Family Hx:: Diabetes
[2021-11-13 06:58] LABS: POC Glucose,Bedside 280 (70-110)
[2021-11-13 07:20] LABS: Bacteria,Urine Trace /lpf; Mucus,Urine 2+ /lpf; WBC,Urine Occasional #/hpf (0-3)
[2021-11-13 07:22] LABS: Potassium 4.6 mmoL/L (3.5-5.1)
--- NOTE | 2021-11-13 08:35 | HMH.OPNOTE ---
Date of procedure: 11/13/21 Pre-op Diagnosis:: Gallbladder polyp Postprandial nausea Post-op Diagnosis:: Same Procedure performed:: Laparoscopic cholecystectomy Surgeon:: Mikel Cantu MD TICKET SPECULATOR:: Gaby Valadez Anesthesia: GETSony Estimated blood loss (mL): 10 Operative findings:: Mild infundibular thickening Operative note:: After informed consent was obtained, the patient was taken to the operating room and placed in the supine position. General anesthesia was induced and the abdomen was prepped and draped in a sterile fashion. After infiltration with local anesthetic an infraumbilical incision was made. A Veress needle was placed in position. The abdomen was insufflated. A 5 mm optical trocar was placed in position. Under direct visualization, a 12 mm trocar was placed in the subxiphoid position and 2 additional 5 mm trocars were placed in the right upper quadrant. The gallbladder was elevated up and over the liver margin. The tissue around the cystic duct was carefully dissected. 3 clips were placed proximally and the duct was transected with harmonic jp. Harmonic jp were then utilized to dissect the gallbladder away from the liver margin with careful attention to the control of the cystic artery. The gallbladder was placed in a retrieval bag and removed through the subxiphoid trocar site. The right upper quadrant was thoroughly irrigated. No active bleeding or bile leak was noted. Fascia at the subxiphoid trocar site was reapproximated utilizing the NeoClose device. The remaining trocars were removed. All wounds were irrigated and skin was closed with 4-0 Monocryl in a subcuticular fashion. Steri-Strips were applied. The patient's anesthetic agents were reversed and extubation was completed prior to transfer to recovery in stable condition. Condition: stable Disposition: PACU Specimens:: Gallbladder Complications:: No immediate
--- NOTE | 2021-11-13 08:43 | HMH.ANESI ---
[facility] Anesthesia Record Part I Intake, IV Amount: 900 Estimated blood loss (mL): 20 Urine output (mL): 0 Blood Pressure: 137/79 SaO2: 94 Pulse Rate: 67 Respiratory Rate: 13 Temperature: 98.4 F Patient is:: Drowsy, Oral/Nasal airway Stable to PACU at:: 08:38
--- NOTE | 2021-11-13 08:46 | SUR.PHASEI ---
0843 BS obtained with results of 331. Malena Valadez CRNA notified. 10u regular insulin ordered by Malena Valadez CRNA
--- NOTE | 2021-11-13 09:36 | SUR.PHASEI ---
0931 BS obtained with result of 305. Malena Valadez CRNA notified. 10u humalog insulin ordered per Malena Valadez CRNA
--- NOTE | 2021-11-13 10:25 | SUR.PHASEI ---
1010 BS obtained with result of 304. Malena Valadez CRNA notified. Malena Valadez CRNA ordered another 10u of humalog insulin and recheck BS in 15 minutes. Malena Valadez CRNA stated she is okay for pt to go to next phase as long as BS is under 300 and also to instruct pt to follow up with PCP.
[2021-11-13 10:49] LABS: POC Glucose,Bedside 331 (70-110)
[2021-11-13 10:49] LABS: POC Glucose,Bedside 305 (70-110)
--- NOTE | 2021-11-13 10:52 | SUR.PHASEI ---
1038 BS obtained with results of 283. Malena Valadez CRNA notified and okay'd pt to go to phase 2. 1039 called and gave detailed report to Abram Alas RN. 1043 pt transported to post op via stretcher. vital signs stable. denies pain. pt left in stable condition with Abram Alas RN at bedside.
--- NOTE | 2021-11-14 10:18 | P.PN_ITS ---
[facility] Anesthesia Record Part II Discharge Time: 10:43 Destination: Surgical Day Care (OP Surgery) PACU nurse assessment reviewed?: Yes Patient Condition:: Good Anesthesia Complications:: None Swallowing reflex intact?: Yes Cyanosis?: No Blood Pressure: 114/72 Pulse Rate: 69 Temperature: 97.6 F Mental Status: Alert & Oriented Pain level:: 0 Nausea and/or vomitting:: None Intake, IV Amount: 0
[2021-11-14 10:19] VITALS: BP 114/72; PULSE 69; TEMP 36.4
== END 2021-11-13 11:29 | disposition home or self-care (01) ==
LOC: OR 06:12
PROVIDERS: PCP Family Medicine; Visit Provider Surgery
PROC: 0FT44ZZ Resection of Gallbladder, Percutaneous Endoscopic Approach (ICD-10-PCS; CPT 47562; principal; 2021-11-13 07:30)
DX: K82.4 Cholesterolosis of gallbladder (principal); R11.0 Nausea; E11.9 Type 2 diabetes mellitus without complications; I25.10 Atherosclerotic heart disease of native coronary artery without angina pectoris; I10 Essential (primary) hypertension; E78.5 Hyperlipidemia, unspecified; I25.2 Old myocardial infarction; Z79.82 Long term (current) use of aspirin; Z79.84 Long term (current) use of oral hypoglycemic drugs; Z79.899 Other long term (current) drug therapy
CPT/HCPCS: 47562; 81001; 82962; 84132; 96374; J0131; J2405

== ENCOUNTER → 2022-04-02 13:49 | Outpatient (CLI) | payer MEDICAID, SELFPAY ==
[2022-04-02 15:15] LABS: Alanine Aminotransferase 27 U/L (12-78); Albumin Level 4.5 g/dl (3.5-5.0); Alkaline Phosphatase 77 U/L (38-126); Aspartate Amino Transferase 25 U/L (17-59); Bilirubin,Direct 0.1 mg/dl (0.0-0.4); Bilirubin,Indirect 0.3 mg/dL (0.0-0.9); Bilirubin,Total 0.4 mg/dl (0.2-1.3); Bilirubin,Unconjugated 0.3 mg/dL (0.0-1.1); Chol/HDL Ratio 4.5 (1-3.5); Cholesterol 167 mg/dl (140-200); HDL Cholesterol 37 mg/dl (40-60); Total Protein,Serum 7.1 g/dl (6.3-8.2); Triglycerides 223 mg/dl (30-150); VLDL Cholesterol 45 mg/dL (0-40)
[2022-04-02 15:26] LABS: Direct LDL Cholesterol 93.67 mg/dL (100-129)
== END ==
PROVIDERS: PCP Family Medicine; Visit Provider Nurse Practitioner Family
DX: E78.2 Mixed hyperlipidemia (principal); I25.10 Atherosclerotic heart disease of native coronary artery without angina pectoris; I50.22 Chronic systolic (congestive) heart failure
CPT/HCPCS: 36415; 80061; 80076

== ENCOUNTER → 2022-12-28 23:53 | Outpatient (CLI) | payer MEDICAID, SELFPAY ==
[2022-12-28 19:15] LABS: Basophils % 0.4 % (0.1-2.0); Eosinophils # 0.2 K/mm3 (0.0-0.4); Eosinophils % 3.1 % (0.1-12.0); Hematocrit 39.2 % (42.0-52.0); Hemoglobin 12.2 g/dL (14.1-18.0); Lymphocytes # 1.5 K/mm3 (0.7-4.5); Lymphocytes % 22.5 % (10-50); Mean Corpuscular HGB Conc 31.2 g/dL (31.8-35.4); Mean Corpuscular Hemoglobin 30.1 pg (27.0-31.2); Mean Corpuscular Volume 96.5 fl (80-94); Mean Platelet Volume 9.8 fl (7.4-10.4); Monocytes # 0.4 K/mm3 (0.1-1.0); Monocytes % 6.6 % (1.7-9.3); Neutrophils # 4.5 K/mm3 (1.8-7.8); Neutrophils % 67.4 % (37.0-80.0); Platelet Count 256 K/mm3 (142-424); Red Blood Count 4.06 M/mm3 (4.60-6.20); Red Cell Distribution Width 13.4 % (11.5-17.5); White Blood Count 6.6 K/mm3 (4.8-10.8)
[2022-12-28 19:19] LABS: Chloride 107 mmol/L (98-107)
[2022-12-28 19:20] LABS: Sodium 140 mmol/L (136-145)
[2022-12-28 19:22] LABS: Alanine Aminotransferase 18 U/L (12-78); Blood Urea Nitrogen 51 mg/dl (9-20); Estimated Glomerular Filt Rate 25 ml/min (>60); GFR (African American) 30 ML/MIN (>60)
[2022-12-28 19:23] LABS: Albumin Level 4.2 g/dl (3.5-5.0); Albumin/Globulin Ratio 1.4 (1.1-1.8); Alkaline Phosphatase 77 U/L (38-126); Aspartate Amino Transferase 23 U/L (17-59); Bilirubin,Total 0.5 mg/dl (0.2-1.3); Calcium 10.4 mg/dl (8.4-10.2); Carbon Dioxide 20 mmol/L (22.0-30.0); Chol/HDL Ratio 6.2 (1-3.5); Cholesterol 149 mg/dl (140-200); Globulin 3.1 g/dL (1.3-3.2); Glucose 157 mg/dl (74-100); HDL Cholesterol 24 mg/dl (40-60); Total Protein,Serum 7.3 g/dl (6.3-8.2); Triglycerides 165 mg/dl (30-150); VLDL Cholesterol 33 mg/dL (0-40)
[2022-12-28 19:34] LABS: Direct LDL Cholesterol 80.33 mg/dL (100-129)
[2022-12-28 19:57] LABS: Hemoglobin A1C 6.3 % (4.0-6.0)
== END ==
PROVIDERS: PCP Family Medicine; Visit Provider Family Medicine
DX: I10 Essential (primary) hypertension (principal); E11.9 Type 2 diabetes mellitus without complications; E78.5 Hyperlipidemia, unspecified; Z79.84 Long term (current) use of oral hypoglycemic drugs
CPT/HCPCS: 80053; 80061; 83036; 85025

== ENCOUNTER 2022-12-29 16:53 | Observation (INO) | payer MEDICAID, SELFPAY ==
[2022-12-29 16:54] VITALS: BP 132/68; PULSE 60; RESP 17; TEMP 36.7; O2SAT 100; BMI 29.5
[2022-12-29 17:05] LABS: Microscopic, Urine URINE MICROSCOPIC (MICROSCOPIC)
[2022-12-29 17:12] LABS: Appearance,Urine CLEAR (Clear); Bilirubin,Urine Negative (Negative); Blood, Urine Negative (Negative); Color,Urine YELLOW (Yellow); Glucose,Urine (UA) Negative (Negative); Ketones,Urine Negative (Negative); Leukocyte Esterase,Urine Negative (Negative); Nitrate,Urine Negative (Negative); PH,Urine 5.5 (5.0-8.5); Protein,Urine Negative (Negative); Specific Gravity, Urine 1.015 (1.005-1.030); Urobilinogen,Urine 0.2 EU/dl (0.2)
--- NOTE | 2022-12-29 17:15 | ECG_ITS ---
APPROVED REPORT Exam: Resting ECG HR:64 bpm ECG Measurements Heart Rate 64 AXES GA 182 P 72 QRSd 126 QRS 99 QT 411 T -89 QTc 421 Conclusion SINUS RHYTHM BORDERLINE RIGHT AXIS DEVIATION [QRS AXIS > 90] MODERATE INTRAVENTRICULAR CONDUCTION DELAY [105+ ms QRS DURATION, 80+ ms Q/S IN V1/V2, NO Q AND 60+ ms R IN I/aVL/V5/V6] NONSPECIFIC ST & T-WAVE ABNORMALITY ABNORMAL ECG UNCONFIRMED REPORT Electronically signed by : Bharath Cardoza MD 01/01/2023 16:12:24
--- NOTE | 2022-12-29 17:18 | PC.NURSE ---
DR RECIO AT BEDSIDE
[2022-12-29 17:29] LABS: Chloride 106 mmol/L (98-107)
[2022-12-29 17:30] VITALS: BP 122/62; PULSE 61; O2SAT 99
[2022-12-29 17:30] LABS: Potassium 5.2 mmoL/L (3.5-5.1); Sodium 142 mmol/L (136-145)
[2022-12-29 17:32] LABS: Alanine Aminotransferase 19 U/L (12-78); Albumin Level 4.4 g/dl (3.5-5.0); Albumin/Globulin Ratio 1.3 (1.1-1.8); Alkaline Phosphatase 67 U/L (38-126); Anion Gap 18.2 mEq/L (5-15); Aspartate Amino Transferase 25 U/L (17-59); Bilirubin,Total 0.4 mg/dl (0.2-1.3); Blood Urea Nitrogen 45 mg/dl (9-20); Carbon Dioxide 23 mmol/L (22.0-30.0); Creatinine Clearance Estimated 35 mL/min (50-200); Estimated Glomerular Filt Rate 23 ml/min (>60); GFR (African American) 28 ML/MIN (>60); Globulin 3.4 g/dL (1.3-3.2); Glucose 83 mg/dl (74-100); Total Protein,Serum 7.8 g/dl (6.3-8.2)
--- NOTE | 2022-12-29 17:32 | HMH.EDGENADL ---
Discharge Plan Disposition Patient Disposition: Admitted Condition: Good Clinical Impressions Clinical Impression: JOAQUINA (acute kidney injury) Discharge ED Provider: Colleen Shi General Adult HPI General Chief complaint: Recheck/Abnormal Lab/Rx Stated complaint: Renal failure Time Seen by Provider: 12/29/22 16:57 Mode of Arrival: Ambulatory Source of Information: Patient Description of Symptoms (Recalled from ER Triage Doc. by RN): PT STATES HE WAS SEEN BY DR MELENDREZ YESTERDAY, BLOODWORK COLLECTED. PT STATES HE RECEIVED A CALL STATING HE WAS IN RENAL FAILURE AND HE NEEDED TO BE SEEN IN ED. PT DENIES COMPLAINTS. History of Present Illness HPI narrative: This patient is a 62-year-old male with a history of hypertension, hyperlipidemia, CAD status post CABG, systolic CHF with AICD in place, renal insufficiency, and T2DM presenting to the ED for evaluation of abnormal labs. Patient reports that he was evaluated yesterday by his primary care provider for his routine exam and was told that everything was looking good until he got his lab results today. He states that he was then contacted and told that he was in renal failure and needed to go to the emergency department. He states that he has been feeling fine and has been in his usual state of health. He states that he has had no recent fevers, abdominal pain, nausea, vomiting, changes in bowel movements, changes in urine output, hematuria, or other concerns. On review of systems, he does note some intermittent right flank pain. He does note that he does not drink as much as he should. He denies any changes in medications or use of NSAIDs. On medical record review, creatinine is up to 2.6 yesterday from a baseline of 1.5. I also note hyperkalemia on his outpatient labs with a potassium of 6. Related Data Home Medications Medication Instructions Recorded Confirmed aspirin 81 mg tablet,delayed 81 mg PO DAILY HEART HEALTH 02/26/20 12/29/22 release alcohol swabs (Alcohol Pads) 1 pad topical TID diabetes 12/29/22 12/29/22 atorvastatin 10 mg tablet 10 mg PO PM Cholesterol 12/29/22 12/29/22 blood sugar diagnostic (Casual CollectiveTouch 12/29/22 12/29/22 Ultra Test strips) blood-glucose meter (Casual CollectiveTouch 12/29/22 12/29/22 Ultra2 Meter) clopidogrel 75 mg tablet 75 mg PO DAILY Heart Disease 12/29/22 12/29/22 furosemide 40 mg tablet 40 mg PO DAILY Fluid 12/29/22 12/29/22 glipizide 10 mg tablet, extended 10 mg PO BID Diabetes 12/29/22 12/29/22 release 24 hr lancets 12/29/22 12/29/22 metoprolol tartrate 25 mg tablet 25 mg PO DAILY Heart Failure 12/29/22 12/29/22 sacubitril 24 mg-valsartan 26 mg 24 - 26 tab PO BID hes 12/29/22 12/29/22 tablet (Entresto) sitagliptin phos 50 mg-metformin 1 tab PO BID Diabetes 12/29/22 12/29/22 ER 1,000 mg tablet,extend rel 24h mp (Janumet XR) vardenafil 20 mg tablet 20 mg PO DAILY PRN ed 12/29/22 12/29/22 Allergies Allergy/AdvReac Type Severity Reaction Status Date / Time codeine Allergy Intermediate Unknown Verified 12/28/22 09:32 allergy reaction PFSH [facility] Disclaimer: The information contained in this section may have been updated after the patient was seen, as this information can be updated by other users. Medical History (Updated 12/29/22 @ 20:33 by Toya Escobedo RN) Cardiac defibrillator in place Diabetes History of heart attack History of pacemaker Hyperlipidemia Hypertension Pacemaker Surgical History (Updated 12/29/22 @ 20:32 by Toya Escobedo RN) Hx of CABG Hx of cholecystectomy Social History Smoking Status: Never smoker alcohol intake: never substance use type: denies use current occupational status: unemployed Travel in the last 8 weeks: None housing: house caffeine: Yes ROS Obtained: Yes All systems reviewed & no additional complaints except as documented Physical Exam General General appearance: alert and in no apparent
[2022-12-29 17:33] LABS: Calcium 9.3 mg/dl (8.4-10.2)
[2022-12-29 17:35] LABS: Basophils % 0.5 % (0.1-2.0); Eosinophils # 0.2 K/mm3 (0.0-0.4); Eosinophils % 3.5 % (0.1-12.0); Hematocrit 37.8 % (42.0-52.0); Hemoglobin 11.9 g/dL (14.1-18.0); Lymphocytes # 1.8 K/mm3 (0.7-4.5); Lymphocytes % 25.8 % (10-50); Mean Corpuscular HGB Conc 31.5 g/dL (31.8-35.4); Mean Corpuscular Hemoglobin 30.2 pg (27.0-31.2); Mean Corpuscular Volume 95.8 fl (80-94); Mean Platelet Volume 8.7 fl (7.4-10.4); Monocytes # 0.5 K/mm3 (0.1-1.0); Monocytes % 6.9 % (1.7-9.3); Neutrophils # 4.5 K/mm3 (1.8-7.8); Neutrophils % 63.3 % (37.0-80.0); Platelet Count 247 K/mm3 (142-424); Red Blood Count 3.95 M/mm3 (4.60-6.20); Red Cell Distribution Width 13.4 % (11.5-17.5); White Blood Count 7.1 K/mm3 (4.8-10.8)
[2022-12-29 17:40] LABS: Squamous Epithelial Cell,Urine Occasional #/hpf (0-5); WBC,Urine Occasional #/hpf (0-3)
[2022-12-29 17:45] VITALS: PULSE 60; O2SAT 99
--- NOTE | 2022-12-29 17:47 | CT_ITS ---
PROCEDURE INFORMATION: Exam: CT Abdomen And Pelvis Without Contrast Exam date and time: 12/29/2022 6:00 PM Age: 62 years old Clinical indication: Abnormal findings; Abnormal lab test; Abnormal kidney function lab tests; Additional info: R flank pain, new renal failure TECHNIQUE: Imaging protocol: Computed tomography of the abdomen and pelvis without contrast. Radiation optimization: All CT scans at this facility use at least one of these dose optimization techniques: automated exposure control; mA and/or kV adjustment per patient size (includes targeted exams where dose is matched to clinical indication); or iterative reconstruction. REPORTING DATA: Count of CT and Cardiac NM exams in prior 12 months: This patient has received 0 known CTs and 0 known cardiac nuclear medicine studies in the 12 months prior to the current study. COMPARISON: US GALLBLADDER 10/14/2021 9:13 AM FINDINGS: Coronary arteries: Postsurgical changes of CABG. Liver: Normal. No mass. Gallbladder and bile ducts: Postsurgical changes of cholecystectomy. Pancreas: Normal. No ductal dilation. Spleen: Multiple punctate splenic calcifications. Adrenal glands: Normal. No mass. Kidneys and ureters: Few punctate foci within the bilateral kidneys which may represent nonobstructing stones versus vascular calcifications. Mild bilateral perinephric stranding. No hydronephrosis. Stomach and bowel: Minimal colonic diverticulosis. Normal caliber. Appendix: No evidence of appendicitis. Intraperitoneal space: Unremarkable. No free air. No significant fluid collection. Vasculature: Moderate atherosclerotic changes of the abdominal aorta and iliac arteries without aneurysmal dilatation. Lymph nodes: Unremarkable. No enlarged lymph nodes. Urinary bladder: Unremarkable as visualized. Reproductive: Enlarged prostate. Bones/joints: Old right anterior 8th and 9th rib fractures. Bilateral L5 pars defects without significant spondylolisthesis. Degenerative changes of the spine and hips. No acute osseous findings. Soft tissues: Unremarkable. IMPRESSION: Few punctate foci within the bilateral kidneys which may represent nonobstructing stones versus vascular calcifications. Mild bilateral perinephric stranding which may be related to underlying medical renal disease or potentially an upper urinary tract infection.
--- NOTE | 2022-12-29 18:01 | PC.NURSE ---
pt return from CT
--- NOTE | 2022-12-29 18:53 | PC.NURSE ---
pt ambulated to bathroom
--- NOTE | 2022-12-29 18:54 | PC.NURSE ---
pt ambulated to restroom with no problems not back at room,call light at bs
--- NOTE | 2022-12-29 19:41 | PC.NURSE ---
Pt rsting in bed, denies any need. Updated on being admitted, verbalized understanding
[2022-12-29 20:05] VITALS: BP 106/65; PULSE 72; RESP 15; TEMP 36.4; O2SAT 99
--- NOTE | 2022-12-29 20:05 | PC.NURSE ---
RN taking pt to his admission room.
--- NOTE | 2022-12-29 20:11 | PC.NURSE ---
Patient arrived to floor via wheelchair at 20:09.
[2022-12-29 20:15] VITALS: BP 122/63; PULSE 72; RESP 18; TEMP 36.3; O2SAT 100; BMI 29.7
--- NOTE | 2022-12-29 20:17 | EXP.HP ---
History of Present Illness *Admission Date: 12/29/22 *Reason for visit:: JOAQUINA *History of present illness: This is a 62-year-old male with a PMHx of hypertension, hyperlipidemia, CAD status post CABG, systolic CHF with AICD in place, CKD and T2DM presenting to the ED for evaluation of abnormal labs. Patient reported been referred by his primary care provider for his routine exam. Patient asymptomatic. He stated that he has had no recent fevers, abdominal pain, nausea, vomiting, changes in bowel movements, changes in urine output, hematuria, or other concerns. Admitted for observation and tretament. [facility] Disclaimer: The information contained in this section may have been updated after the patient was seen, as this information can be updated by other users. Medical History (Updated 12/30/22 @ 01:35 by Thanh Samuel APRN) Cardiac defibrillator in place Diabetes History of heart attack History of pacemaker Hyperlipidemia Hypertension Pacemaker Surgical History (Updated 12/29/22 @ 20:32 by Toya Escobedo RN) Hx of CABG Hx of cholecystectomy Social History Smoking Status: Never smoker alcohol intake: never substance use type: denies use current occupational status: unemployed Travel in the last 8 weeks: None housing: house caffeine: Yes Review of Systems Review of Systems Review of systems:: pertinent systems reviewed and negative unless documented below Meds Home Medications and Allergies Home Medications Medication Instructions Recorded Confirmed Type aspirin 81 mg tablet,delayed 81 mg PO DAILY HEART HEALTH 02/26/20 12/29/22 History release alcohol swabs (Alcohol Pads) 1 pad topical TID diabetes 12/29/22 12/29/22 History atorvastatin 10 mg tablet 10 mg PO PM Cholesterol 12/29/22 12/29/22 History blood sugar diagnostic (OneTouch 12/29/22 12/29/22 History Ultra Test strips) blood-glucose meter (OneTouch 12/29/22 12/29/22 History Ultra2 Meter) clopidogrel 75 mg tablet 75 mg PO DAILY Heart Disease 12/29/22 12/29/22 History furosemide 40 mg tablet 40 mg PO DAILY Fluid 12/29/22 12/29/22 History glipizide 10 mg tablet, extended 10 mg PO BID Diabetes 12/29/22 12/29/22 History release 24 hr lancets 12/29/22 12/29/22 History metoprolol tartrate 25 mg tablet 25 mg PO DAILY Heart Failure 12/29/22 12/29/22 History sacubitril 24 mg-valsartan 26 mg 24 - 26 tab PO BID hes 12/29/22 12/29/22 History tablet (Entresto) sitagliptin phos 50 mg-metformin 1 tab PO BID Diabetes 12/29/22 12/29/22 History ER 1,000 mg tablet,extend rel 24h mp (Janumet XR) vardenafil 20 mg tablet 20 mg PO DAILY PRN ed 12/29/22 12/29/22 History New Prescriptions to Start Prescriptions: Allergies Allergy/AdvReac Type Severity Reaction Status Date / Time codeine Allergy Intermediate Unknown Verified 12/28/22 09:32 allergy reaction Exam Data for Last 24 hours Vital signs and Labs for Last 24 Hours: Temp Pulse Resp BP Pulse Ox O2 Del Method 97.5 F L 72 15 106/65 L 99 Room Air 12/29/22 20:05 12/29/22 20:05 12/29/22 20:05 12/29/22 20:05 12/29/22 17:45 12/29/22 20:05 Laboratory Results - last 24 hr 12/29/22 17:00: Urine Color Yellow, Urine Appearance Clear, Urine pH 5.5, Ur Specific [place] 1.015, Urine Protein Negative, Urine Glucose (UA) Negative, Urine Ketones Negative, Urine Blood Negative, Urine Nitrate Negative, Urine Bilirubin Negative, Urine Urobilinogen 0.2, Ur Leukocyte Esterase Negative, Urine RBC None, Urine WBC Occasional, Ur Squamous Epith Cells Occasional, Urine Bacteria None 12/29/22 17:10: WBC 7.1, RBC 3.95 L, Hgb 11.9 L, Hct 37.8 L, MCV 95.8 H, MCH 30.2, MCHC 31.5 L, RDW 13.4, Plt Count 247, MPV 8.7, Neut % (Auto) 63.3, Lymph % (Auto) 25.8, [place] % (Auto) 6.9, Eos % (Auto) 3.5, Baso % (Auto) 0.5, Neut # (Auto) 4.5, Lymph # (Auto) 1.8, [place] # (Auto) 0.5, Eos # (Auto) 0.2, Baso # (Auto) 0.0, Sodium 142,
[2022-12-29 22:37] LABS: POC Glucose,Bedside 68 (70-110)
[2022-12-29 23:17] LABS: POC Glucose,Bedside 70 (70-110)
[2022-12-30 01:06] LABS: POC Glucose,Bedside 93 (70-110)
[2022-12-30 04:00] VITALS: BP 88/48; PULSE 70; RESP 18; TEMP 36.6; O2SAT 97; BMI 30.7
--- NOTE | 2022-12-30 04:45 | PC.NURSE ---
pt admitted for koffi. creatnine 2.. pt receiving ns@125ml/hr. pt hypoglycemic 68. pt given snack, came up to 70. provider made aware. new order received for d50 as needed. repeat @0100 was 93
[2022-12-30 05:49] LABS: POC Glucose,Bedside 130 (70-110)
[2022-12-30 06:38] LABS: Mean Corpuscular Hemoglobin 30.8 pg (27.0-31.2); Mean Corpuscular Volume 95.8 fl (80-94); Monocytes # 0.4 K/mm3 (0.1-1.0); Red Cell Distribution Width 13.4 % (11.5-17.5)
[2022-12-30 06:43] LABS: Alanine Aminotransferase 14 U/L (12-78); Albumin Level 3.5 g/dl (3.5-5.0); Albumin/Globulin Ratio 1.3 (1.1-1.8); Alkaline Phosphatase 61 U/L (38-126); Anion Gap 13.8 mEq/L (5-15); Aspartate Amino Transferase 19 U/L (17-59); Blood Urea Nitrogen 41 mg/dl (9-20); Carbon Dioxide 21 mmol/L (22.0-30.0); Chloride 110 mmol/L (98-107); Chol/HDL Ratio 5.1 (1-3.5); Cholesterol 118 mg/dl (140-200); Creatinine Clearance Estimated 46 mL/min (50-200); Estimated Glomerular Filt Rate 30 ml/min (>60); GFR (African American) 37 ML/MIN (>60); Globulin 2.7 g/dL (1.3-3.2); Glucose 124 mg/dl (74-100); HDL Cholesterol 23 mg/dl (40-60); Magnesium 1.3 mg/dl (1.6-2.3); Phosphorous 3.3 mg/dl (2.5-4.5); Potassium 4.8 mmoL/L (3.5-5.1); Sodium 140 mmol/L (136-145); Total Protein,Serum 6.2 g/dl (6.3-8.2); Triglycerides 280 mg/dl (30-150); VLDL Cholesterol 56 mg/dL (0-40)
[2022-12-30 06:50] LABS: Basophils % 0.7 % (0.1-2.0); Bilirubin,Total 0.1 mg/dl (0.2-1.3); Eosinophils # 0.3 K/mm3 (0.0-0.4); Eosinophils % 4.9 % (0.1-12.0); Hematocrit 32.8 % (42.0-52.0); Lymphocytes # 1.4 K/mm3 (0.7-4.5); Lymphocytes % 26.7 % (10-50); Mean Corpuscular HGB Conc 32.1 g/dL (31.8-35.4); Mean Platelet Volume 8.6 fl (7.4-10.4); Monocytes % 8.1 % (1.7-9.3); Neutrophils # 3.2 K/mm3 (1.8-7.8); Neutrophils % 59.7 % (37.0-80.0); Platelet Count 227 K/mm3 (142-424); Red Blood Count 3.42 M/mm3 (4.60-6.20); White Blood Count 5.3 K/mm3 (4.8-10.8)
[2022-12-30 06:54] LABS: Direct LDL Cholesterol 57.92 mg/dL (100-129); Hemoglobin 10.5 g/dL (14.1-18.0)
--- NOTE | 2022-12-30 07:17 | HMH.PHAINT1 ---
Pharmacy Intervention Comments: Medication history complete, medications verified with fill history. - Rosemarie Yancey, PharmD Candidate 2023
[2022-12-30 07:32] VITALS: BP 99/51; PULSE 66; RESP 16; TEMP 36.6; O2SAT 97
--- NOTE | 2022-12-30 07:52 | EXP.PN ---
Subjective *Date: 12/30/22 *Time: 12:31 Interval history: Patient seen and examined today at bedside with nursing staff. He reports no acute events overnight. Nursing staff report that he remains afebrile with some low blood pressures with stable heart rates. He is saturating appropriately on room air. We have reviewed, discussed and personally interpreted his labs as follows: Normal electrolytes with a creatinine 2.2 with an admission creatinine 2.8 and baseline creatinine 1.5. His magnesium 1.3 and is being replaced. His LFTs are normal. His CBC identifies normal white blood cell count with stable hemoglobin 10.5 and normal platelets. Exam Data for Last 24 hours Vital signs and Labs for Last 24 Hours: Temp Pulse Resp BP Pulse Ox O2 Del Method 97.9 F 66 16 99/51 L 97 Room Air 12/30/22 07:32 12/30/22 07:32 12/30/22 07:32 12/30/22 07:32 12/30/22 07:32 12/30/22 07:32 Laboratory Results - last 24 hr 12/29/22 17:00: Urine Color Yellow, Urine Appearance Clear, Urine pH 5.5, Ur Specific [place] 1.015, Urine Protein Negative, Urine Glucose (UA) Negative, Urine Ketones Negative, Urine Blood Negative, Urine Nitrate Negative, Urine Bilirubin Negative, Urine Urobilinogen 0.2, Ur Leukocyte Esterase Negative, Urine RBC None, Urine WBC Occasional, Ur Squamous Epith Cells Occasional, Urine Bacteria None 12/29/22 17:10: WBC 7.1, RBC 3.95 L, Hgb 11.9 L, Hct 37.8 L, MCV 95.8 H, MCH 30.2, MCHC 31.5 L, RDW 13.4, Plt Count 247, MPV 8.7, Neut % (Auto) 63.3, Lymph % (Auto) 25.8, [place] % (Auto) 6.9, Eos % (Auto) 3.5, Baso % (Auto) 0.5, Neut # (Auto) 4.5, Lymph # (Auto) 1.8, [place] # (Auto) 0.5, Eos # (Auto) 0.2, Baso # (Auto) 0.0, Sodium 142, Potassium 5.2 H, Chloride 106, Carbon Dioxide 23, Anion Gap 18.2 H, BUN 45 H, Creatinine 2.80 H, Estimated Creat Clear 35, Estimated GFR 23 L, Est GFR ( Amer) 28 L, Glucose 83, Calcium 9.3, Total Bilirubin 0.4, AST 25, ALT 19, Alkaline Phosphatase 67, Total Protein 7.8, Albumin 4.4, Globulin 3.4 H, Albumin/Globulin Ratio 1.3 12/29/22 22:30: POC Glucose 68 L 12/29/22 23:09: POC Glucose 70 12/30/22 00:59: POC Glucose 93 12/30/22 05:39: POC Glucose 130 H 12/30/22 05:44: WBC 5.3 D, RBC 3.42 L, Hgb 10.5 L D, Hct 32.8 L, MCV 95.8 H, MCH 30.8, MCHC 32.1, RDW 13.4, Plt Count 227, MPV 8.6, Neut % (Auto) 59.7, Lymph % (Auto) 26.7, [place] % (Auto) 8.1, Eos % (Auto) 4.9, Baso % (Auto) 0.7, Neut # (Auto) 3.2, Lymph # (Auto) 1.4, [place] # (Auto) 0.4, Eos # (Auto) 0.3, Baso # (Auto) 0.0, Sodium 140, Potassium 4.8, Chloride 110 H, Carbon Dioxide 21 L, Anion Gap 13.8, BUN 41 H, Creatinine 2.20 H D, Estimated Creat Clear 46, Estimated GFR 30 L, Est GFR ( Amer) 37 L D, Glucose 124 H D, Calcium 9.0, Phosphorus 3.3, Magnesium 1.3 L, Total Bilirubin 0.1 L, AST 19, ALT 14 D, Alkaline Phosphatase 61, Total Protein 6.2 L, Albumin 3.5 D, Globulin 2.7, Albumin/Globulin Ratio 1.3, Triglycerides 280 H, Cholesterol 118 L, LDL Cholesterol Direct 57.92 L, VLDL Cholesterol 56 H, HDL Cholesterol 23 L, Cholesterol/HDL Ratio 5.1 H I & O for Last 24 hours: Intake & Output 12/27/22 12/28/22 12/29/22 12/30/22 23:59 23:59 23:59 23:59 Intake Total 1368 / 1368 Output Total 0 / 0 200 / 200 Balance 0 / 0 1168 / 1168 Weight 91.172 kg 94.075 kg Constitutional Constitutional: no acute distress and cooperative *Routine HEENT Exam Head: Present normocephalic *Routine Neck Exam Neck: Present supple *Routine Respiratory Exam Respiratory: Present rales, rhonchi and symmetric chest movement *Routine Cardiovascular Exam Cardiovascular: Present RRR *Routine Extremities Exam Extremities: Present full ROM *Routine Neurological Exam Neurological: Present alert, oriented X3, moving all extremities and normal speech Routine Psychiatric Exam Psychiatric: Present normal affect, normal thought process, cooperative, good insight and good judgment Assessment and Plan *Assessment and plan (1) Ypmvo-[id number] kidney injury: Status:
[2022-12-30 11:36] LABS: POC Glucose,Bedside 198 (70-110)
[2022-12-30 14:59] VITALS: BP 95/53; PULSE 63; RESP 16; TEMP 36.6; O2SAT 97
[2022-12-30 16:41] LABS: POC Glucose,Bedside 119 (70-110)
[2022-12-30 20:00] VITALS: BP 105/57; PULSE 70; RESP 18; TEMP 36.9; O2SAT 96
[2022-12-30 21:15] LABS: POC Glucose,Bedside 148 (70-110)
[2022-12-31 04:00] VITALS: BP 99/56; PULSE 69; RESP 18; TEMP 36.6; O2SAT 98; BMI 31.2
--- NOTE | 2022-12-31 05:33 | PC.NURSE ---
pt a&ox4. room air. receiving iv fluids. no complaints through the night.
[2022-12-31 06:10] LABS: POC Glucose,Bedside 112 (70-110)
[2022-12-31 06:35] LABS: Anion Gap 10.9 mEq/L (5-15); Blood Urea Nitrogen 31 mg/dl (9-20); Carbon Dioxide 22 mmol/L (22.0-30.0); Chloride 113 mmol/L (98-107); Creatinine Clearance Estimated 54 mL/min (50-200); Estimated Glomerular Filt Rate 36 ml/min (>60); GFR (African American) 44 ML/MIN (>60); Glucose 99 mg/dl (74-100); Magnesium 1.6 mg/dl (1.6-2.3); Potassium 4.9 mmoL/L (3.5-5.1); Sodium 141 mmol/L (136-145)
[2022-12-31 06:42] LABS: NT Pro Brain Natriuretic Pep. 4430 pg/mL (0-125)
[2022-12-31 08:00] VITALS: BP 116/64; PULSE 65; RESP 17; TEMP 36.9; O2SAT 98
--- NOTE | 2022-12-31 08:08 | EXP.DC.SUM ---
General Admission date:: 12/29/22 Discharge date: 12/31/22 HPI HPI HPI: This is a 62-year-old male with a PMHx of hypertension, hyperlipidemia, CAD status post CABG, systolic CHF with AICD in place, CKD and T2DM presenting to the ED for evaluation of abnormal labs. Patient reported been referred by his primary care provider for his routine exam. Patient asymptomatic. He stated that he has had no recent fevers, abdominal pain, nausea, vomiting, changes in bowel movements, changes in urine output, hematuria, or other concerns. Admitted for observation and tretament. Hospital Course Hospital Course Hospital Course: The patient was admitted to the medical floor with IV fluid resuscitation with his identified exposure to hot summer weather and decreased p.o. intake. His laboratory studies and inflammatory markers were trended. His discharge creatinine was 1.9 with a baseline of 1.5. He understands the importance of adequate hydration and routine renal evaluations with his PCP. We will avoid the addition of SGLT2 inhibitor therapy for his HFrEF with his chronic kidney disease. He will resume his loop diuretic therapy with identified elevated BNP. Magnesium supplementation was provided on discharge. The patient identified improvement and inquired about discharge home. I spent 35 minutes in [id number] time with the patient and nursing staff concerning the discharge process. We discussed the admitting diagnoses and hospital course. We discussed identified improvement and the patient's desire to be discharged. We reviewed inpatient studies and imaging. The patient voiced understanding on the importance of follow-up with his primary care provider and we have recommended referral to a local java lead architect on discharge. The patient plans to be compliant with the medication regimen prescribed and follow-up appointments. He understands the importance of routine renal evaluations with his ACC guided therapy for his congestive heart failure. He understands that he can return to the emergency department with any sudden changes or concerns. Exam Data for Last 24 hours Vital signs and Labs for Last 24 Hours: Temp Pulse Resp BP Pulse Ox O2 Del Method 98.4 F 65 17 116/64 98 Room Air 12/31/22 08:00 12/31/22 08:00 12/31/22 08:00 12/31/22 08:00 12/31/22 08:00 12/31/22 08:00 Laboratory Results - last 24 hr 12/30/22 11:26: POC Glucose 198 H 12/30/22 16:31: POC Glucose 119 H 12/30/22 19:58: POC Glucose 148 H 12/31/22 05:40: Sodium 141, Potassium 4.9, Chloride 113 H, Carbon Dioxide 22, Anion Gap 10.9, BUN 31 H, Creatinine 1.90 H, Estimated Creat Clear 54, Estimated GFR 36 L, Est GFR ( Amer) 44 L, Glucose 99 D, Calcium 9.0, Magnesium 1.6 D, NT-Pro-B Natriuret Pep 4430 H 12/31/22 05:56: POC Glucose 112 H I & O for Last 24 hours: Intake & Output 12/28/22 12/29/22 12/30/22 12/31/22 23:59 23:59 23:59 23:59 Intake Total 3425 / 4125 1060 / 1060 Output Total 0 / 0 200 / 200 0 / 0 Balance 0 / 0 3225 / 3925 1060 / 1060 Weight 91.172 kg 94.075 kg 95.736 kg Constitutional Constitutional: no acute distress and cooperative *Routine HEENT Exam Head: Present normocephalic *Routine Neck Exam Neck: Present supple *Routine Respiratory Exam Respiratory: Present rales, rhonchi and symmetric chest movement *Routine Cardiovascular Exam Cardiovascular: Present RRR *Routine Extremities Exam Extremities: Present full ROM *Routine Neurological Exam Neurological: Present alert, oriented X3, moving all extremities and normal speech Routine Psychiatric Exam Psychiatric: Present normal affect, normal thought process, cooperative, good insight and good judgment Results Data Completed and Pending Labs on day of discharge: Labs from last 24 hours 12/31/22 12/31/22 12/30/22 05:56 05:40 19:58 Sodium 141 Potassium 4.9 Chloride 113 H Carbon Dioxide 22 Anion Gap 10.9 BUN 31 H Creatinine 1.90 H Estimated C
[2022-12-31 09:57] LABS: Vitamin B12 186 pg/mL (239-931)
[2022-12-31 15:03] LABS: Hemoglobin A1C 6.2 % (4.0-6.0)
--- NOTE | 2023-01-01 13:32 | CARE MANAGER ---
Contacted patient related to hospital discharge. He states he picked up his medications and is aware of his follow up appointments. Denies questions or concerns. MERARI Smallwood
== END 2022-12-31 10:54 | disposition home or self-care (01) ==
LOC: ER 19:47 → 2ND 20:06
PROVIDERS: Family Medicine; Nurse Practitioner Family; Admitting Provider Internal Medicine Adolescent Medicine; Emergency Provider Emergency Medicine; PCP Family Medicine; Visit Provider Internal Medicine Adolescent Medicine
DX: N17.8 Other acute kidney failure (principal); N18.4 Chronic kidney disease, stage 4 (severe); E87.5 Hyperkalemia; I50.22 Chronic systolic (congestive) heart failure; I25.10 Atherosclerotic heart disease of native coronary artery without angina pectoris; E78.2 Mixed hyperlipidemia; E11.59 Type 2 diabetes mellitus with other circulatory complications; Z95.810 Presence of automatic (implantable) cardiac defibrillator; E11.22 Type 2 diabetes mellitus with diabetic chronic kidney disease; I13.0 Hypertensive heart and chronic kidney disease with heart failure and stage 1 through stage 4 chronic kidney disease, or unspecified chronic kidney disease; Z79.02 Long term (current) use of antithrombotics/antiplatelets; Z79.84 Long term (current) use of oral hypoglycemic drugs; Z79.899 Other long term (current) drug therapy
CPT/HCPCS: 36415; 74176; 80048; 80053; 80061; 81001; 82607; 82962; 83036; 83735; 83880; 84100; 85025; 93005; 99285; G0378; J3475

== ENCOUNTER → 2023-01-08 23:41 | Outpatient (CLI) | payer MEDICAID, SELFPAY ==
[2023-01-08 18:01] LABS: Alanine Aminotransferase 29 U/L (12-78); Albumin Level 4.3 g/dl (3.5-5.0); Albumin/Globulin Ratio 1.4 (1.1-1.8); Alkaline Phosphatase 80 U/L (38-126); Anion Gap 17.3 mEq/L (5-15); Aspartate Amino Transferase 29 U/L (17-59); Bilirubin,Total 0.4 mg/dl (0.2-1.3); Blood Urea Nitrogen 63 mg/dl (9-20); Calcium 9.7 mg/dl (8.4-10.2); Carbon Dioxide 23 mmol/L (22.0-30.0); Chloride 103 mmol/L (98-107); Estimated Glomerular Filt Rate 20 ml/min (>60); GFR (African American) 24 ML/MIN (>60); Glucose 84 mg/dl (74-100); Potassium 5.3 mmoL/L (3.5-5.1); Sodium 138 mmol/L (136-145); Total Protein,Serum 7.3 g/dl (6.3-8.2)
[2023-01-08 18:31] LABS: Prostate Specific Ag Screen 1.1 ng/ml (0.0-4.0)
== END ==
LOC: LAB.DROPOF 23:41
PROVIDERS: PCP Family Medicine; Visit Provider Family Medicine
DX: E11.9 Type 2 diabetes mellitus without complications (principal)
CPT/HCPCS: 80053; G0103

== ENCOUNTER → 2023-02-16 11:23 | Outpatient (CLI) | payer MEDICAID, SELFPAY ==
[2023-02-16 12:44] LABS: Chloride 105 mmol/L (98-107)
[2023-02-16 12:45] LABS: Potassium 5.3 mmoL/L (3.5-5.1); Sodium 140 mmol/L (136-145)
[2023-02-16 12:47] LABS: Blood Urea Nitrogen 44 mg/dl (9-20); Estimated Glomerular Filt Rate 29 ml/min (>60); GFR (African American) 35 ML/MIN (>60)
[2023-02-16 12:48] LABS: Anion Gap 15.3 mEq/L (5-15); Calcium 9.7 mg/dl (8.4-10.2); Carbon Dioxide 25 mmol/L (22.0-30.0); Glucose 133 mg/dl (74-100)
== END ==
PROVIDERS: PCP Family Medicine; Visit Provider Physician Assistant
DX: I25.10 Atherosclerotic heart disease of native coronary artery without angina pectoris (principal); I10 Essential (primary) hypertension; E78.5 Hyperlipidemia, unspecified; Z95.1 Presence of aortocoronary bypass graft; Z95.5 Presence of coronary angioplasty implant and graft; Z95.810 Presence of automatic (implantable) cardiac defibrillator
CPT/HCPCS: 36415; 80048

== ENCOUNTER → 2023-02-26 23:39 | Outpatient (CLI) | payer MEDICAID, SELFPAY ==
[2023-02-26 19:38] LABS: Basophils % 0.4 % (0.1-2.0); Eosinophils # 0.2 K/mm3 (0.0-0.4); Eosinophils % 2.7 % (0.1-12.0); Hematocrit 36.6 % (42.0-52.0); Hemoglobin 12.1 g/dL (14.1-18.0); Lymphocytes % 12.2 % (10-50); Mean Corpuscular HGB Conc 33.2 g/dL (31.8-35.4); Mean Corpuscular Hemoglobin 31.4 pg (27.0-31.2); Mean Corpuscular Volume 94.4 fl (80-94); Monocytes # 0.4 K/mm3 (0.1-1.0); Monocytes % 5.1 % (1.7-9.3); Neutrophils # 6.8 K/mm3 (1.8-7.8); Neutrophils % 79.7 % (37.0-80.0); Platelet Count 292 K/mm3 (142-424); Red Blood Count 3.88 M/mm3 (4.60-6.20); Red Cell Distribution Width 13.2 % (11.5-17.5); White Blood Count 8.5 K/mm3 (4.8-10.8)
[2023-02-26 20:10] LABS: Hemoglobin A1C 6.4 % (4.0-6.0)
[2023-02-26 20:56] LABS: Alanine Aminotransferase 29 U/L (12-78); Albumin Level 4.2 g/dl (3.5-5.0); Albumin/Globulin Ratio 1.3 (1.1-1.8); Alkaline Phosphatase 143 U/L (38-126); Anion Gap 17.6 mEq/L (5-15); Aspartate Amino Transferase 25 U/L (17-59); Bilirubin,Total 0.5 mg/dl (0.2-1.3); Blood Urea Nitrogen 31 mg/dl (9-20); Calcium 9.6 mg/dl (8.4-10.2); Carbon Dioxide 21 mmol/L (22.0-30.0); Chloride 104 mmol/L (98-107); Chol/HDL Ratio 6.2 (1-3.5); Cholesterol 142 mg/dl (140-200); Estimated Glomerular Filt Rate 32 ml/min (>60); GFR (African American) 39 ML/MIN (>60); Globulin 3.3 g/dL (1.3-3.2); Glucose 177 mg/dl (74-100); HDL Cholesterol 23 mg/dl (40-60); Potassium 4.6 mmoL/L (3.5-5.1); Sodium 138 mmol/L (136-145); Total Protein,Serum 7.5 g/dl (6.3-8.2); Triglycerides 173 mg/dl (30-150); VLDL Cholesterol 35 mg/dL (0-40)
[2023-02-26 21:07] LABS: Direct LDL Cholesterol 84.45 mg/dL (100-129)
== END ==
PROVIDERS: PCP Family Medicine; Visit Provider Family Medicine
DX: Z00.00 Encounter for general adult medical examination without abnormal findings (principal); Z79.899 Other long term (current) drug therapy
CPT/HCPCS: 80053; 80061; 83036; 85025

== ENCOUNTER → 2023-03-02 12:42 | Outpatient (CLI) | payer MEDICAID, SELFPAY ==
--- NOTE | 2023-03-02 12:43 | CA_ITS ---
APPROVED REPORT EXAM: Comprehensive 2D, Doppler, and color-flow Echocardiogram Director Of Sustainability Programs: Alla Vanegas RT(R) Ht: 5 ft 9 in Wt: 203lbs BSA: 2.08 BP: 116/70 mmHg Indications: dyspnea, HTN, hyperlipidemia, CODY, CAD, CHF, AICD, CABG, hx CM, EF 30-35% on echo 04/15/21 2D Dimensions LVOT 2.09 cm (M/F) 1.5-2.5 LA Volume 72.70 mL LA Volume Index 34.95 mL/m2 (M/F) 16-34 M-Mode Dimensions RVDd 3.10 cm (0.9-2.6) LA Diam 4.84 cm (1.9-4.0) LVDd 6.42 cm (3.5-5.7) Ao Diam 2.40 cm (2.0-3.7) LVDs 6.09 cm (3.5-5.7) IVSd 0.92 cm (0.6-1.1) PWd 0.81 cm (0.6-1.1) EF (Teich) 11.30% FS 5.10% EDV (Teich) 210.00 mL ESV (Teich) 186.20 mL LV Diastology E Decel Time 150.00 (160-240 msec) E/A Ratio 3.6 MED E' 4.90 (< 7 cm/sec) E'/MED E' Ratio 19.55 (>14) LAT E' 6.90 (<10 cm/sec) E/LAT E' Ratio 13.88 (>14) Mitral Valve MV E Max Anthony. 96.00 (40-130 cm/s) MV A Velocity 27.00 (40-130 cm/s) E/A Ratio 3.57 MV Decel. Time 150.00 (160-240 ms) MV PHT 44.00 ms Left Ventricle The left ventricle is normal size. Left ventricular systolic function is moderate to severely decreased. There is normal left ventricular wall thickness. There is moderate to severe global hypokinesis present. Grade 3 diastolic dysfunction is present. LVEF is 30%. Right Ventricle The right ventricle is normal size. The right ventricular systolic function is normal. A device lead is present in the right ventricle. Atria Left atrium is mildly dilated. The right atrium size is normal. There is no Doppler evidence of interatrial shunt. Aortic Valve The aortic valve is mildly thickened. There is no aortic valvular stenosis. Trace aortic regurgitation. Mitral Valve The mitral valve leaflets are mildly thickened. No evidence of mitral valve stenosis. Moderate mitral regurgitation. Tricuspid Valve The tricuspid valve leaflets are thin and pliable. Mild tricuspid regurgitation. RVSP is 20-25 mmHg. Pulmonic Valve The pulmonary valve is normal in structure. Trace pulmonic regurgitation. Great Vessels The aortic root is normal in size. The ascending aorta is normal in size. IVC is normal in size and collapses >50% with inspiration. Pericardium There is no pericardial effusion. Other Information Study Quality: Fair Conclusion Moderate to severe reduction in global LV systolic function (LVEF 30%). Grade 3 diastolic dysfunction. Moderate MR. Mild TR. Electronically signed by : Svetlana Moseley MD 03/08/2023 19:48:46
== END ==
PROVIDERS: PCP Family Medicine; Visit Provider Physician Assistant
DX: E78.5 Hyperlipidemia, unspecified (principal); I11.9 Hypertensive heart disease without heart failure; I25.10 Atherosclerotic heart disease of native coronary artery without angina pectoris; Z95.1 Presence of aortocoronary bypass graft; Z95.810 Presence of automatic (implantable) cardiac defibrillator; N52.9 Male erectile dysfunction, unspecified
CPT/HCPCS: 93306

== ENCOUNTER 2023-06-21 18:17 | Outpatient (CLI) | payer MEDICAID, SELFPAY ==
[2023-06-21 18:14] LABS: Microalbumin < 6.000 mg/L (0-16.7)
[2023-06-21 18:16] LABS: Creatinine,Urine Random 146 mg/dL (Not Estab.)
[2023-06-21 18:52] LABS: Hemoglobin A1C 6.9 % (4.0-6.0)
[2023-06-21 18:54] LABS: Alanine Aminotransferase 30 U/L (12-78); Albumin Level 4.6 g/dl (3.5-5.0); Albumin/Globulin Ratio 1.8 (1.1-1.8); Alkaline Phosphatase 68 U/L (38-126); Anion Gap 18.9 mEq/L (5-15); Aspartate Amino Transferase 28 U/L (17-59); Bilirubin,Total 0.5 mg/dl (0.2-1.3); Blood Urea Nitrogen 72 mg/dl (9-20); Carbon Dioxide 20 mmol/L (22.0-30.0); Chloride 104 mmol/L (98-107); Estimated Glomerular Filt Rate 23 ml/min (>60); GFR (African American) 28 ML/MIN (>60); Globulin 2.5 g/dL (1.3-3.2); Glucose 173 mg/dl (74-100); Potassium 4.9 mmoL/L (3.5-5.1); Sodium 138 mmol/L (136-145); Total Protein,Serum 7.1 g/dl (6.3-8.2)
== END 2023-06-21 23:59 ==
LOC: LAB.DROPOF 18:18
PROVIDERS: PCP Nurse Practitioner; Visit Provider Nurse Practitioner
DX: E11.9 Type 2 diabetes mellitus without complications (principal); N18.9 Chronic kidney disease, unspecified; Z79.899 Other long term (current) drug therapy
CPT/HCPCS: 80053; 82043; 82570; 83036

== ENCOUNTER 2024-01-24 09:00 | Outpatient (CLI) | payer MEDICAID, SELFPAY ==
[2024-01-24 19:44] LABS: Basophils # 0.1 K/mm3 (0-0.2); Basophils % 1.1 % (0.1-2.0); Eosinophils # 0.3 K/mm3 (0.0-0.4); Eosinophils % 3.3 % (0.1-12.0); Hemoglobin 12.5 g/dL (14.1-18.0); Lymphocytes # 1.6 K/mm3 (0.7-4.5); Lymphocytes % 20.5 % (10-50); Mean Corpuscular HGB Conc 33.1 g/dL (31.8-35.4); Mean Corpuscular Hemoglobin 31.2 pg (27.0-31.2); Mean Corpuscular Volume 94.4 fl (80-94); Mean Platelet Volume 9.5 fl (7.4-10.4); Monocytes # 0.4 K/mm3 (0.1-1.0); Monocytes % 5.8 % (1.7-9.3); Neutrophils # 5.3 K/mm3 (1.8-7.8); Neutrophils % 69.2 % (37.0-80.0); Platelet Count 237 K/mm3 (142-424); Red Blood Count 4.02 M/mm3 (4.60-6.20); Red Cell Distribution Width 13.9 % (11.5-17.5); White Blood Count 7.6 K/mm3 (4.8-10.8)
[2024-01-24 20:32] LABS: Hemoglobin A1C 6.9 % (4.0-6.0)
[2024-01-24 20:47] LABS: Alanine Aminotransferase 17 U/L (12-78); Albumin Level 4.4 g/dl (3.5-5.0); Albumin/Globulin Ratio 1.5 (1.1-1.8); Alkaline Phosphatase 60 U/L (38-126); Anion Gap 12.8 mEq/L (5-15); Aspartate Amino Transferase 20 U/L (17-59); Bilirubin,Total 0.8 mg/dl (0.2-1.3); Blood Urea Nitrogen 47 mg/dl (9-20); Carbon Dioxide 22 mmol/L (22.0-30.0); Chloride 105 mmol/L (98-107); Chol/HDL Ratio 4.6 (1-3.5); Cholesterol 156 mg/dl (140-200); Estimated Glomerular Filt Rate 25 ml/min (>60); GFR (African American) 30 ML/MIN (>60); Glucose 170 mg/dl (74-100); HDL Cholesterol 34 mg/dl (40-60); Potassium 4.8 mmoL/L (3.5-5.1); Sodium 135 mmol/L (136-145); Total Protein,Serum 7.4 g/dl (6.3-8.2); Triglycerides 192 mg/dl (30-150); VLDL Cholesterol 38 mg/dL (0-40)
[2024-01-24 20:55] LABS: Creatinine,Urine Random 62 mg/dL (Not Estab.)
[2024-01-24 20:58] LABS: Direct LDL Cholesterol 83.06 mg/dL (100-129); Microalbumin/Creatinine Ratio 22.5
[2024-01-24 21:17] LABS: Prostate Specific Ag Screen 1.2 ng/ml (0.0-4.0)
== END 2024-01-24 23:59 | disposition home or self-care (01) ==
LOC: LAB.DROPOF 01-25 09:35
PROVIDERS: PCP Family Medicine; Visit Provider Family Medicine
DX: E11.59 Type 2 diabetes mellitus with other circulatory complications (principal); I95.89 Other hypotension; E53.8 Deficiency of other specified B group vitamins; N18.9 Chronic kidney disease, unspecified; Z95.5 Presence of coronary angioplasty implant and graft; I25.10 Atherosclerotic heart disease of native coronary artery without angina pectoris; Z95.1 Presence of aortocoronary bypass graft; E78.2 Mixed hyperlipidemia; I10 Essential (primary) hypertension; Z95.810 Presence of automatic (implantable) cardiac defibrillator; Z12.5 Encounter for screening for malignant neoplasm of prostate
CPT/HCPCS: 80053; 80061; 82043; 82570; 83036; 85025; G0103

== ENCOUNTER 2024-04-03 10:43 | Outpatient (CLI) | payer MEDICAID, SELFPAY ==
[2024-04-03 11:45] LABS: Albumin Level 4.6 g/dl (3.5-5.0)
[2024-04-03 11:46] LABS: Chloride 104 mmol/L (98-107); Potassium 5.2 mmoL/L (3.5-5.1); Sodium 134 mmol/L (136-145)
[2024-04-03 11:48] LABS: Alanine Aminotransferase 16 U/L (12-78); Anion Gap 12.2 mEq/L (5-15); Aspartate Amino Transferase 25 U/L (17-59); Bilirubin,Unconjugated 0.4 mg/dL (0.0-1.1); Blood Urea Nitrogen 78 mg/dl (9-20); Carbon Dioxide 23 mmol/L (22.0-30.0); Estimated Glomerular Filt Rate 18 ml/min (>60); GFR (African American) 22 ML/MIN (>60)
[2024-04-03 11:49] LABS: Alkaline Phosphatase 68 U/L (38-126); Bilirubin,Direct 0.4 mg/dl (0.0-0.4); Bilirubin,Indirect 0.3 mg/dL (0.0-0.9); Bilirubin,Total 0.7 mg/dl (0.2-1.3); Calcium 9.8 mg/dl (8.4-10.2); Chol/HDL Ratio 4.3 (1-3.5); Cholesterol 137 mg/dl (140-200); Glucose 164 mg/dl (74-100); HDL Cholesterol 32 mg/dl (40-60); Magnesium 2.1 mg/dl (1.6-2.3); Total Protein,Serum 7.4 g/dl (6.3-8.2); Triglycerides 112 mg/dl (30-150); VLDL Cholesterol 22 mg/dL (0-40)
[2024-04-03 11:53] LABS: Basophils # 0.1 K/mm3 (0-0.2); Basophils % 0.9 % (0.1-2.0); Eosinophils # 0.2 K/mm3 (0.0-0.4); Eosinophils % 3.5 % (0.1-12.0); Hematocrit 34.7 % (42.0-52.0); Lymphocytes # 1.5 K/mm3 (0.7-4.5); Lymphocytes % 23.9 % (10-50); Mean Corpuscular HGB Conc 34.5 g/dL (31.8-35.4); Mean Corpuscular Hemoglobin 31.5 pg (27.0-31.2); Mean Corpuscular Volume 91.1 fl (80-94); Mean Platelet Volume 8.8 fl (7.4-10.4); Monocytes # 0.4 K/mm3 (0.1-1.0); Monocytes % 6.2 % (1.7-9.3); Neutrophils # 4.2 K/mm3 (1.8-7.8); Neutrophils % 65.4 % (37.0-80.0); Platelet Count 186 K/mm3 (142-424); Red Blood Count 3.81 M/mm3 (4.60-6.20); Red Cell Distribution Width 13.8 % (11.5-17.5); White Blood Count 6.4 K/mm3 (4.8-10.8)
[2024-04-03 12:00] LABS: Direct LDL Cholesterol 81.78 mg/dL (100-129)
[2024-04-03 12:20] LABS: Thyroid Stimulating Hormone 1.49 uIU/mL (0.465-4.68)
[2024-04-03 13:24] LABS: Free T4 (Free Thyroxine) 0.91 ng/dl (0.78-2.19)
== END 2024-04-03 23:59 | disposition home or self-care (01) ==
LOC: LAB 10:45
PROVIDERS: PCP Family Medicine; Visit Provider Physician Assistant
DX: I47.20 Ventricular tachycardia, unspecified (principal); I50.20 Unspecified systolic (congestive) heart failure; I95.89 Other hypotension; R42 Dizziness and giddiness; N18.9 Chronic kidney disease, unspecified; E11.59 Type 2 diabetes mellitus with other circulatory complications; Z95.5 Presence of coronary angioplasty implant and graft; I25.10 Atherosclerotic heart disease of native coronary artery without angina pectoris; Z95.1 Presence of aortocoronary bypass graft; E78.2 Mixed hyperlipidemia; I10 Essential (primary) hypertension; Z79.84 Long term (current) use of oral hypoglycemic drugs; Z79.85 Long-term (current) use of injectable non-insulin antidiabetic drugs
CPT/HCPCS: 36415; 80048; 80061; 80076; 83735; 84439; 84443; 85025

== ENCOUNTER 2024-08-07 09:40 | Outpatient (CLI) | payer BC, SELFPAY ==
[2024-08-07 09:58] LABS: Basophils # 0.1 K/mm3 (0-0.2); Basophils % 1.1 % (0.1-2.0); Eosinophils # 0.2 Kmm3 (0.0-0.4); Eosinophils % 3.1 % (0.1-12.0); Hematocrit 38.7 % (42.0-52.0); Hemoglobin 12.5 g/dL (14.1-18.0); Lymphocytes # 1.2 K/mm3 (0.7-4.5); Lymphocytes % 15.6 % (10-50); Mean Corpuscular HGB Conc 32.3 g/dL (31.8-35.4); Mean Corpuscular Hemoglobin 30.5 pg (27.0-31.2); Mean Corpuscular Volume 94.4 fl (80-94); Mean Platelet Volume 11.4 fl (7.4-10.4); Monocytes # 0.6 K/mm3 (0.1-1.0); Monocytes % 7.3 % (1.7-9.3); Neutrophils # 5.4 K/mm3 (1.8-7.8); Neutrophils % 72.6 % (37.0-80.0); Nucleated Red Blood Cells # 0 10^3/uL; Nucleated Red Blood Cells % 0 %; Platelet Count 221 K/mm3 (142-424); Red Cell Distribution Width 14.3 % (11.5-17.5); Red Cell Distribution Width-SD 49.5 fL; White Blood Count 7.5 K/mm3 (4.8-10.8)
[2024-08-07 10:30] LABS: Alanine Aminotransferase 18 U/L (12-78); Albumin Level 4.7 g/dl (3.5-5.0); Alkaline Phosphatase 84 U/L (38-126); Anion Gap 17.4 mEq/L (5-15); Aspartate Amino Transferase 26 U/L (17-59); Bilirubin,Direct 0.3 mg/dl (0.0-0.4); Bilirubin,Indirect 0.4 mg/dL (0.0-0.9); Bilirubin,Total 0.7 mg/dl (0.2-1.3); Bilirubin,Unconjugated 0.4 mg/dL (0.0-1.1); Blood Urea Nitrogen 43 mg/dl (9-20); Calcium 10.2 mg/dl (8.4-10.2); Carbon Dioxide 26 mmol/L (22.0-30.0); Chloride 103 mmol/L (98-107); Chol/HDL Ratio 5.2 (1-3.5); Cholesterol 183 mg/dl (140-200); Estimated Glomerular Filt Rate 32 ml/min (>60); GFR (African American) 39 ML/MIN (>60); Glucose 119 mg/dl (74-100); HDL Cholesterol 35 mg/dl (40-60); Magnesium 2.1 mg/dl (1.6-2.3); Potassium 5.4 mmoL/L (3.5-5.1); Sodium 141 mmol/L (136-145); Total Protein,Serum 8.1 g/dl (6.3-8.2); Triglycerides 177 mg/dl (30-150); VLDL Cholesterol 35 mg/dL (0-40)
[2024-08-07 10:41] LABS: Direct LDL Cholesterol 96.91 mg/dL (100-129)
[2024-08-07 10:58] LABS: Free T4 (Free Thyroxine) 1.11 ng/dl (0.78-2.19)
[2024-08-07 11:00] LABS: Thyroid Stimulating Hormone 4.77 uIU/mL (0.465-4.68)
== END 2024-08-07 23:59 | disposition home or self-care (01) ==
LOC: LAB 09:41
PROVIDERS: PCP Family Medicine; Visit Provider Nurse Practitioner Family
DX: I11.0 Hypertensive heart disease with heart failure (principal); I25.10 Atherosclerotic heart disease of native coronary artery without angina pectoris; I50.20 Unspecified systolic (congestive) heart failure; R42 Dizziness and giddiness; E53.8 Deficiency of other specified B group vitamins; E87.5 Hyperkalemia; E11.59 Type 2 diabetes mellitus with other circulatory complications; Z79.84 Long term (current) use of oral hypoglycemic drugs; E78.2 Mixed hyperlipidemia
CPT/HCPCS: 36415; 80048; 80061; 80076; 83735; 84439; 84443; 85025